=== PATIENT | male | born 1960 | race African-American/Black ===

== ENCOUNTER 2021-01-04 19:01 | Inpatient (IN) ==
[2021-01-04] MEDS ORDERED: NS 1,000 ML IV 1,000 ML ONE ×2 (19:04→21:14)
[2021-01-04] MEDS ORDERED: NS 1,000 ML IV 1,000 ML IV ONE ×2 (19:09→20:53)
--- NOTE | 2021-01-04 19:45 | DR.AMS ---
HPI Time Seen Time Seen by Provider: 01/04/21 19:44 PCP Primary Care Physician: HIGHTOWER Complaint Cheif Complaint Doctors Comments: 60 y/o male brought in via EMS after having sudden weakness, ground level fall and hypotension. Pt was at work. Developed bu rning with urination today, cloudy urine. Was treated for UTI over the past month. Has a h/o HTN, been taking his med qam. Denies recent girlfriends. Denies fever/chills. Has a slight cough, denies dyspnea. No chest pain, abdominal pain. No injury today with fall. Chief Complaint:: PT IN ED VIA STRETCHER PER [facility] WITH LOW BP, WEAKNESS, FELL FROM STANDING POSITION. STATES HIS KNEES GAVE OUT. COVID-19 Coronavirus risk:travel/contact w/high risk person: No Has patient experienced Coronavirus symptoms: Yes Coronavirus symptoms experienced: Fever Reviewed Nurses Notes Reviewed: Yes Source History Provided: Patient and EMS Mode of Arrival Mode of Arrival: EMS Timing Onset of Chief Complaint: 01/04/21 Came On: Suddenly PMH PMH Past Medical History: Yes Past Medical History: Arthritis and Hypertension Past Surgical History: No Surgical History: No History Family History History of Family Medical Conditions: Yes Family Medical History: Diabetes Mellitus and Hypertension Social History Does patient currently use any type of tobacco product: Yes Have you used tobacco products in the last 12 months: Yes Type of Tobacco Use: Black/mild Does any household member use tobacco: No Alcohol Use: None Do you use any recreational Drugs:: No Lives With: Family Lives Where: Home Travel Risk Coronavirus risk:travel/contact w/high risk person: No Has patient experienced Coronavirus symptoms: Yes Coronavirus symptoms experienced: Fever Infectious screening In the last 2 months have you had wt loss of >10#?: NO Have you had fever, night sweats or hemotysis?: No Have you traveled outside the country in the last 6 months?: No Isolation: Droplet ROS Review of Systems Constitutional: Weakness Eyes: No Symptoms Reported ENTM: No Symptoms Reported Respiratoy: Dry Cough; negative Short of Breath Cardiovascular: No Symptoms Reported Gastrointestinal/Abdominal: No Symptoms Reported Genitourinary: Dysuria and Frequency Neurological: Weakness Musculoskeletal: Joint Pain Integumentary: No Symptoms Reported Hematologic/Lymphatic: No Symptoms Reported Endocrine: No Symptoms Reported Psychiatric: No Symptoms Reported All Other Systems: Reviewed and Negative PE Vitals Vital Signs: Temp Pulse Resp BP Pulse Ox 01/05/21 00:45 82 98 01/05/21 00:30 85 125/78 97 01/05/21 00:15 92 H 98 01/05/21 00:00 89 97 01/04/21 23:45 91 H 98 01/04/21 23:30 89 115/74 99 01/04/21 23:15 90 99 01/04/21 23:00 91 H 126/70 98 01/04/21 22:45 93 H 98 01/04/21 22:30 94 H 120/72 97 01/04/21 22:15 94 H 98 01/04/21 22:00 95 H 118/75 99 01/04/21 21:45 92 H 21 01/04/21 21:30 94 H 17 111/74 01/04/21 21:15 96 H 32 H 01/04/21 21:00 94 H 20 98/65 01/04/21 20:45 97 H 21 01/04/21 20:30 93 H 18 96/63 01/04/21 20:15 90 28 H 01/04/21 20:00 93 H 26 H 102/62 01/04/21 19:45 91 H 31 H 99 01/04/21 19:30 93 H 27 H 83/50 99 01/04/21 19:17 92 H 30 H 98 01/04/21 19:02 100.2 F H 104 H 20 77/46 97 General Limitations: No Limitations General Appearance: Alert and In No Apparent Distress Head Head Exam: Normal Inspection, Atraumatic and Normocephalic Eyes Eye exam: Normal Appearance and PERRL ENT ENT Exam: Normal Exam and Mucous Membranes Moist Nose Exam: Normal Nose Exam Throat Exam: Normal Inspection Neck Neck Exam: Normal Inspection and Full ROM; negative Tenderness Respiratory Respiratory Exam: Normal Lung Sounds Bilat; negative Accessory Muscle Use and Respiratory Distress Respiratory Exam: Bilateral: Clear to Auscultation Cardiovascular Cardiovascular Exam: Regular Rate, Normal Rhythm and Normal Heart Sounds Abdominal Exam Abdominal Exam: Normal Inspection, Normal Bowel Sounds and Soft; negative Tenderness Extremities Extremities Exam: Normal Inspection and Full ROM; negative Tenderness and Edema Back Back Exam: Normal Inspection and Full ROM; negative Tenderness Neurological Neurological Exam: Alert, Oriented X3 and CN II-XII Intact; negative Motor Sensory Deficit Psychological Psychiatric Exam: Normal Affect Skin Skin Exam: Warm and Dry MDM Differential Diagnosis Metabolic: Dehydration and Hyponatremia Infectious: Sepsis and UTI COURSE Treatment Treatment: 60 y/o male brought in via EMS after sudden weakness. + low BP on their arrival. BP wiht systolic in the 90s on arrival. PE wihtout significant ab normalities. Given IV fluids, w/u initiated. EKG without ischemic changes, CXR acceptable. Labs show the pt to have a significant UTI, with TNTC WBCs/RBCs. Pt states has been having bladder issues over the past month. Serum WBC normal. CMP shows markedly abnormal renal numbers (BUN 67, Cr 4.5). Pt denies known kidney issures on previous outpt labs. CT of abd/pelvis - shows thickened bladder wall, kidneys normal, no signs of pyelonephritis. Pt given IV/PO antibiotics, additional IV fluids. Will repeat a BMP to see if kidneys improving. 0051 - BMP shows improving Cr (4.5 to 3.0). Recommend admission for further treatment. Discussed with his covering attending, Dr Cee. ROR Labs Reviewed Laboratory Results Reviewed?: Yes Result Diagrams: 01/04/21 20:07 01/05/21 00:10 Laboratory: WBC 7.7 X10^3/uL (3.6-10.0) 01/04/21 20:07 RBC 3.54 X10^6/uL (4.7-6.0) L 01/04/21 20:07 Hgb 11.4 g/dL (13.5-18.0) L 01/04/21 20:07 Hct 32.2 % (42.0-54.0) L 01/04/21 20:07 MCV 91.0 fL (80.0-100.0) 01/04/21 20:07 MCH 32.2 pg (27.0-34.0) 01/04/21 20:07 MCHC 35.3 g/dL (33.0-35.0) H 01/04/21 20:07 RDW 12.7 % (11.6-16.5) 01/04/21 20:07 Plt Count 167 X10^3/uL (150.0-450.0) 01/04/21 20:07 MPV 8.1 fL (7.4-11.0) 01/04/21 20:07 Neut % (Auto) 78.5 % (42.0-75.0) H 01/04/21 20:07 Lymph % (Auto) 10.4 % (21.0-51.0) L 01/04/21 20:07 [place] % (Auto) 10.7 % (0.0-13.0) 01/04/21 20:07 Eos % (Auto) 0.1 % (0.9-2.9) L 01/04/21 20:07 Baso % (Auto) 0.3 % (0.2-1.0) 01/04/21 20:07 Neut # (Auto) 6.1 x10^3/uL (2.2-4.8) H 01/04/21 20:07 Lymph # (Auto) 0.8 X10^3/uL (1.3-2.9) L 01/04/21 20:07 [place] # (Auto) 0.8 x10^3/uL (0.3-0.8) 01/04/21 20:07 Eos # (Auto) 0.0 x10^3/uL (0.0-0.2) 01/04/21 20:07 Baso # (Auto) 0.0 X10^3/uL (0.0-0.1) 01/04/21 20:07 Absolute Nucleated RBC 0.1 /100WBC 01/04/21 20:07 Sodium 134 mmol/L (136-145) L 01/05/21 00:10 Corrected Sodium TNP 01/05/21 00:10 Potassium 5.4 mmol/L (3.5-5.1) H 01/05/21 00:10 Chloride 104 mmol/L (98-107) 01/05/21 00:10 Carbon Dioxide 18.9 mmol/L (21-32) L 01/05/21 00:10 BUN 61 mg/dL (7-18) H 01/05/21 00:10 Creatinine 3.08 mg/dL (0.70-1.30) H 01/05/21 00:10 Est GFR (MDRD) Af Amer 27 (>60) L 01/05/21 00:10 Est GFR (MDRD) Non-Af 22 (>60) L 01/05/21 00:10 Glucose 103 mg/dL (65-99) H 01/05/21 00:10 Lactic Acid 0.7 mmol/L (0.4-2.0) 01/04/21 20:07 Calcium 8.2 mg/dL (8.5-10.1) L 01/05/21 00:10 Corrected Calcium 9.4 mg/dL (8.5-10.1) 01/04/21 20:07 Total Bilirubin 0.30 mg/dL (0.2-1.0) 01/04/21 20:07 AST 18 Units/L (15-37) 01/04/21 20:07 ALT 18 Units/L (12-78) 01/04/21 20:07 Alkaline Phosphatase 55 Units/L (46-116) 01/04/21 20:07 Creatine Kinase 321 Units/L (39-308) H 01/04/21 20:07 CK-MB (CK-2) 3.5 ng/mL (0-4.0) 01/04/21 20:07 CK/CKMB % Calc 1.1 % (<4) 01/04/21 20:07 Troponin I < 0.02 ng/mL (0-1.5) 01/04/21 20:07 Total Protein 8.3 g/dL (6.4-8.2) H 01/04/21 20:07 Albumin 2.8 g/dL (3.4-5.0) L 01/04/21 20:07 Globulin 5.5 g/dL (2.5-4.5) H 01/04/21 20:07 Albumin/Globulin Ratio 0.5 Ratio (1.1-2.1) L 01/04/21 20:07 Specimen Type Clean catch urine 01/04/21 19:55 Urine Color Yellow (YELLOW) 01/04/21 19:55 Urine Appearance Cloudy (CLEAR) 01/04/21 19:55 Urine pH 5.0 (5.0 - 8.0) 01/04/21 19:55 Ur Specific [place] 1.015 (1.000-1.030) 01/04/21 19:55 Urine Protein 4+ (NEGATIVE) 01/04/21 19:55 Urine Glucose (UA) Negative (NEGATIVE) 01/04/21 19: Urine Ketones 1+ (NEGATIVE) 01/04/21 19:55 Urine Occult Blood 5+ (NEGATIVE) 01/04/21 19:55 Urine Nitrite Negative (NEGATIVE) 01/04/21 19:55 Urine Bilirubin Negative (NEGATIVE) 01/04/21 19:55 Urine Urobilinogen 1+ (NORMAL) 01/04/21 19:55 Ur Leukocyte Esterase 3+ (NEGATIVE) 01/04/21 19:55 Urine RBC Tntc /HPF (0-3) A 01/04/21 19:55 Urine WBC Tntc /HPF (0-5) A 01/04/21 19:55 Ur Squamous Epith Cells Rare /HPF (NEGATIVE) 01/04/21 19:55 Urine Bacteria Trace /HPF (NEGATIVE) 01/04/21 19:55 Ur Culture Indicated? Yes/culture set up 01/04/21 19:55 Urine Opiates Screen Negative (NEG=<300) 01/04/21 19:55 Urine Methadone Screen Negative (NEG=<300) 01/04/21 19:55 Ur Barbiturates Screen Negative (NEG=<200) 01/04/21 19:55 Ur Phencyclidine Scrn Negative (NEG=<25) 01/04/21 19:55 Ur Amphetamines Screen Negative (NEG=<1000) 01/04/21 19:55 U Benzodiazepines Scrn Negative (NEG=<200) 01/04/21 19:55 Urine Cocaine Screen Negative (NEG=<300) 01/04/21 19:55 U Marijuana (THC) Screen Negative (NEG=<50) 01/04/21 19:55 Ur C. trach DNA (PCR) Cancelled 01/04/21 Unknown U N.gonorrhoeae DNA PCR Cancelled 01/04/21 Unknown SARS CoV-2 RNA Rapid MARCIN Negative (NEGATIVE) 01/04/21 19:14 Other Results Comments: + UTI, + renal injury. XRAY XRAY Interpreted by: Radiologist X-ray Results: + thickened bladder wall, + left inguinal hernia. EKG Rate: 93 [place]: Normal Rhythm: NSR Block: None Hypertrophy: None ST: Normal Opioid Opioid Risk Tool Age (Jay box if 16-45): No History of Preadolescent Sexual Abuse: No Total: 0 Total Score Risk Category: Low Risk Copyright: Almas FERRARO predicting aberrant behaviors Diagnosis Discharge Problem: Acute nontraumatic kidney injury UTI (urinary tract infection) Qualifiers: Urinary tract infection type: site unspecified Hematuria presence: with hematuria Qualified Code(s): N39.0 - Urinary tract infection, site not specified ADDITIONAL NOTES Additional Notes Additional Notes: Critical care time 35 minutes (includes initial evaluation, initial orders, Managing IV fluids, interpretation of labs, imaging studies, IV /PO antibiotics, discussion with pt/family, discussion with admitting attending).
[2021-01-04 20:26] LABS: BASOPHILS % (AUTO) 0.3 % (0.2-1.0); EOSINOPHILS % (AUTO) 0.1 % (0.9-2.9); HEMATOCRIT 32.2 % (42.0-54.0); HEMOGLOBIN 11.4 g/dL (13.5-18.0); LYMPHOCYTES # (AUTO) 0.8 X10^3/uL (1.3-2.9); LYMPHOCYTES % (AUTO) 10.4 % (21.0-51.0); MEAN CORPUSCULAR HEMOGLOBIN 32.2 pg (27.0-34.0); MEAN CORPUSCULAR HGB CONC 35.3 g/dL (33.0-35.0); MEAN PLATELET VOLUME 8.1 fL (7.4-11.0); MONOCYTES # (AUTO) 0.8 x10^3/uL (0.3-0.8); MONOCYTES % (AUTO) 10.7 % (0.0-13.0); NEUTROPHILS # (AUTO) 6.1 x10^3/uL (2.2-4.8); NEUTROPHILS % (AUTO) 78.5 % (42.0-75.0); PLATELET COUNT 167 X10^3/uL (150.0-450.0); RED BLOOD COUNT 3.54 X10^6/uL (4.7-6.0); RED CELL DISTRIBUTION WIDTH 12.7 % (11.6-16.5); WHITE BLOOD COUNT 7.7 X10^3/uL (3.6-10.0)
[2021-01-04 20:28] LABS: BILIRUBIN,URINE NEGATIVE (NEGATIVE); BLOOD/HEMOGLOBIN,URINE 5+ (NEGATIVE); GLUCOSE, URINE NEGATIVE (NEGATIVE); KETONES,URINE 1+ (NEGATIVE); LEUKOCYTE ESTERASE ,URINE 3+ (NEGATIVE); NITRITES,URINE NEGATIVE (NEGATIVE); PROTEIN,URINE 4+ (NEGATIVE); UROBILINOGEN,URINE 1+ (NORMAL)
[2021-01-04 20:41] LABS: LACTIC ACID 0.7 mmol/L (0.4-2.0)
[2021-01-04 20:43] LABS: APPEARANCE,URINE CLOUDY (CLEAR); COLOR,URINE YELLOW (YELLOW)
[2021-01-04 20:44] LABS: BACTERIA,URINE TRACE /HPF (NEGATIVE); RBC,URINE TNTC /HPF (0-3); SQUAMOUS EPITHELIAL CELL,UR RARE /HPF (NEGATIVE)
[2021-01-04 20:48] LABS: ALANINE AMINOTRANSFERASE 18 Units/L (12-78); ALBUMIN 2.8 g/dL (3.4-5.0); ALKALINE PHOSPHATASE 55 Units/L (46-116); ASPARTATE AMINO TRANSFERASE 18 Units/L (15-37); BLOOD UREA NITROGEN 67 mg/dL (7-18); CALCIUM 8.4 mg/dL (8.5-10.1); CARBON DIOXIDE 21.5 mmol/L (21-32); CHLORIDE 102 mmol/L (98-107); CKMB % 1.1 % (<4); COR CA(FOR HYPOALB) 9.4 mg/dL (8.5-10.1); CREATINE KINASE 321 Units/L (39-308); CREATINE KINASE MB 3.5 ng/mL (0-4.0); CREATININE 4.51 mg/dL (0.70-1.30); SODIUM 133 mmol/L (136-145); TOTAL PROTEIN 8.3 g/dL (6.4-8.2); TROPONIN I < 0.02 ng/mL (0-1.5); eGFR NON BLACK RACES 14 (>60)
[2021-01-04] MEDS ORDERED: VIBRAMYCIN PO ONE ×2 (20:53→21:13)
[2021-01-04] MEDS ORDERED: ROCEPHIN VIAL 1 GRAM 1 G in NS 100 ML IV + SPIKE MINIBAG* 100 ML IV ONE (20:54)
[2021-01-04] MEDS ORDERED: ROCEPHIN VIAL 1 GRAM ONE (21:14)
[2021-01-04] MEDS ORDERED: NS 100 ML IV + SPIKE MINIBAG* 100 ML IV ONE (21:14)
--- NOTE | 2021-01-04 22:22 | CT ---
HISTORYLOW BP, WEAKNESS, FELL FROM STANDING POSITION. STATES HIS KNEES GAVE OUT. UTISTUDYABDOMEN/PELVIS W/O CONCOMPARISONNoneTECHNIQUEMultiple CT axial images of the abdomen and pelvis were obtained without IV contrast. Coronal and sagittal images were reconstructed. Dose reduction techniques included Automated Exposure Control (AEC) and adjustment of mA and kV.FINDINGSThe lung bases are clear. Heart size is normal.Liver, gallbladder, spleen, adrenal glands, and pancreas are unremarkable.The kidneys have normal size and shape. No abnormal calcification is present. There is no hydronephrosis or significant perirenal edema. The ureters are not dilated.Urinary bladder has a thickened wall. The most common etiologies are chronic bladder outlet obstruction and neurogenic bladder. If the patient is symptomatic, this could be infectious cystitis. After cancer treatment, this could be radiation cystitis.Large left inguinal hernia contains small bowel. No edema or fluid at the site. No bowel obstruction or pneumoperitoneum. Degenerative changes are present in the spine. No compression fracture. No femoral neck fracture. 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 No acute finding2. Left inguinal hernia containing small bowel3. Nonspecific urinary bladder wall thickeningElectronically signed by: Juan Stewart (Jan 04, 2021 22:19:34)
--- NOTE | 2021-01-04 22:35 | RAD ---
HISTORYHYPOTENSIVE, WEAKNESS, FEVERSTUDYCHEST, 1 VIEWCOMPARISONNoneFINDINGSThe lungs are clear. No pneumothorax or significant effusion.Heart size is normal.Bones are unremarkable.EKG leads are noted.IMPRESSION1. No significant abnormalityElectronically signed by: Juan Stewart (Jan 04, 2021 22:34:15)
[2021-01-05 00:37] LABS: BLOOD UREA NITROGEN 61 mg/dL (7-18); CALCIUM 8.2 mg/dL (8.5-10.1); CARBON DIOXIDE 18.9 mmol/L (21-32); CHLORIDE 104 mmol/L (98-107); CREATININE 3.08 mg/dL (0.70-1.30); SODIUM 134 mmol/L (136-145); eGFR NON BLACK RACES 22 (>60)
[2021-01-05] MEDS: ROCEPHIN VIAL 1 GRAM 1 G in NS 100 ML IV + SPIKE MINIBAG* 100 ML IV SCH ×2 (01:40→08:53)
[2021-01-05] MEDS ORDERED: NS 1,000 ML IV 1,000 ML ONE ×3 (01:43→18:17)
[2021-01-05] MEDS: NS 1,000 ML IV 1,000 ML IV SCH ×3 (01:46→18:17)
[2021-01-05 02:31] VITALS: BMI 27.1
[2021-01-05 05:28] LABS: BASOPHILS % (AUTO) 0.3 % (0.2-1.0); EOSINOPHILS # (AUTO) 0.1 x10^3/uL (0.0-0.2); EOSINOPHILS % (AUTO) 0.9 % (0.9-2.9); HEMATOCRIT 32.8 % (42.0-54.0); HEMOGLOBIN 11.6 g/dL (13.5-18.0); LYMPHOCYTES # (AUTO) 1.1 X10^3/uL (1.3-2.9); LYMPHOCYTES % (AUTO) 18.3 % (21.0-51.0); MEAN CORPUSCULAR HEMOGLOBIN 31.8 pg (27.0-34.0); MEAN CORPUSCULAR HGB CONC 35.3 g/dL (33.0-35.0); MEAN CORPUSCULAR VOLUME 90.1 fL (80.0-100.0); MEAN PLATELET VOLUME 7.9 fL (7.4-11.0); MONOCYTES # (AUTO) 0.9 x10^3/uL (0.3-0.8); MONOCYTES % (AUTO) 14.9 % (0.0-13.0); NEUTROPHILS # (AUTO) 3.9 x10^3/uL (2.2-4.8); NEUTROPHILS % (AUTO) 65.6 % (42.0-75.0); PLATELET COUNT 167 X10^3/uL (150.0-450.0); RED BLOOD COUNT 3.65 X10^6/uL (4.7-6.0); RED CELL DISTRIBUTION WIDTH 12.6 % (11.6-16.5); WHITE BLOOD COUNT 5.9 X10^3/uL (3.6-10.0)
[2021-01-05 05:43] LABS: ALANINE AMINOTRANSFERASE 19 Units/L (12-78); ALBUMIN 2.4 g/dL (3.4-5.0); ALKALINE PHOSPHATASE 52 Units/L (46-116); ASPARTATE AMINO TRANSFERASE 19 Units/L (15-37); BLOOD UREA NITROGEN 55 mg/dL (7-18); CALCIUM 8.3 mg/dL (8.5-10.1); CARBON DIOXIDE 20.7 mmol/L (21-32); CHLORIDE 105 mmol/L (98-107); COR CA(FOR HYPOALB) 9.6 mg/dL (8.5-10.1); CREATININE 2.28 mg/dL (0.70-1.30); SODIUM 135 mmol/L (136-145); TOTAL PROTEIN 7.8 g/dL (6.4-8.2); eGFR NON BLACK RACES 31 (>60)
[2021-01-05] MEDS ORDERED: VIBRAMYCIN PO ONE (08:40)
[2021-01-05] MEDS ORDERED: NS 100 ML IV + SPIKE MINIBAG* 100 ML IV ONE (08:40)
[2021-01-05] MEDS ORDERED: ROCEPHIN VIAL 1 GRAM ONE (08:40)
[2021-01-05] MEDS: VIBRAMYCIN PO SCH ×2 (08:53→21:10)
[2021-01-05 11:39] LABS: BILIRUBIN,URINE NEGATIVE (NEGATIVE); BLOOD/HEMOGLOBIN,URINE 5+ (NEGATIVE); GLUCOSE, URINE NEGATIVE (NEGATIVE); KETONES,URINE NEGATIVE (NEGATIVE); LEUKOCYTE ESTERASE ,URINE 3+ (NEGATIVE); NITRITES,URINE NEGATIVE (NEGATIVE); PROTEIN,URINE 3+ (NEGATIVE); UROBILINOGEN,URINE NORMAL (NORMAL)
[2021-01-05 11:41] LABS: COLOR,URINE PINK (YELLOW)
[2021-01-05 11:42] LABS: APPEARANCE,URINE TURBID (CLEAR)
[2021-01-05 11:55] LABS: BACTERIA,URINE TRACE /HPF (NEGATIVE); MUCUS,URINE FEW /HPF (NEGATIVE); SQUAMOUS EPITHELIAL CELL,UR RARE /HPF (NEGATIVE)
[2021-01-05 12:40] LABS: BLOOD UREA NITROGEN 42 mg/dL (7-18); CALCIUM 8.3 mg/dL (8.5-10.1); CARBON DIOXIDE 18.8 mmol/L (21-32); CHLORIDE 107 mmol/L (98-107); SODIUM 136 mmol/L (136-145); eGFR NON BLACK RACES 55 (>60)
[2021-01-06] MEDS: NS 1,000 ML IV 1,000 ML IV SCH ×5 (00:41→21:00)
[2021-01-06 06:15] LABS: ALANINE AMINOTRANSFERASE 20 Units/L (12-78); ALBUMIN 2.3 g/dL (3.4-5.0); ALKALINE PHOSPHATASE 51 Units/L (46-116); ASPARTATE AMINO TRANSFERASE 21 Units/L (15-37); BASOPHILS % (AUTO) 0.6 % (0.2-1.0); BLOOD UREA NITROGEN 19 mg/dL (7-18); CALCIUM 8.3 mg/dL (8.5-10.1); CARBON DIOXIDE 20.9 mmol/L (21-32); CHLORIDE 106 mmol/L (98-107); COR CA(FOR HYPOALB) 9.7 mg/dL (8.5-10.1); CREATININE 0.77 mg/dL (0.70-1.30); EOSINOPHILS # (AUTO) 0.1 x10^3/uL (0.0-0.2); EOSINOPHILS % (AUTO) 5.1 % (0.9-2.9); HEMATOCRIT 37.1 % (42.0-54.0); HEMOGLOBIN 12.9 g/dL (13.5-18.0); LYMPHOCYTES # (AUTO) 0.7 X10^3/uL (1.3-2.9); LYMPHOCYTES % (AUTO) 24.1 % (21.0-51.0); MEAN CORPUSCULAR HEMOGLOBIN 31.9 pg (27.0-34.0); MEAN CORPUSCULAR HGB CONC 34.7 g/dL (33.0-35.0); MEAN PLATELET VOLUME 8.6 fL (7.4-11.0); MONOCYTES # (AUTO) 0.4 x10^3/uL (0.3-0.8); MONOCYTES % (AUTO) 15.9 % (0.0-13.0); NEUTROPHILS # (AUTO) 1.5 x10^3/uL (2.2-4.8); NEUTROPHILS % (AUTO) 54.3 % (42.0-75.0); PLATELET COUNT 140 X10^3/uL (150.0-450.0); RED BLOOD COUNT 4.03 X10^6/uL (4.7-6.0); RED CELL DISTRIBUTION WIDTH 12.8 % (11.6-16.5); SODIUM 137 mmol/L (136-145); TOTAL PROTEIN 7.8 g/dL (6.4-8.2); WHITE BLOOD COUNT 2.8 X10^3/uL (3.6-10.0); eGFR NON BLACK RACES > 60 (>60)
[2021-01-06] MEDS: ROCEPHIN VIAL 1 GRAM 1 G in NS 100 ML IV + SPIKE MINIBAG* 100 ML IV SCH (08:00)
[2021-01-06] MEDS: VIBRAMYCIN PO SCH ×2 (08:00→21:03)
[2021-01-06] MEDS: ZESTRIL TAB 20 MG PO SCH (15:00)
[2021-01-06] MEDS: AMPICILLIN VIAL 2 GRAM 2 G in NS 100 ML IV + SPIKE MINIBAG* 100 ML IV SCH ×3 (15:10→21:00)
[2021-01-06] MEDS ORDERED: ZESTRIL TAB 20 MG ONE (15:13)
[2021-01-07] MEDS: NS 1,000 ML IV 1,000 ML IV SCH ×2 (02:29→05:26)
[2021-01-07] MEDS: AMPICILLIN VIAL 2 GRAM 2 G in NS 100 ML IV + SPIKE MINIBAG* 100 ML IV SCH (02:29)
[2021-01-07 06:22] LABS: BASOPHILS % (AUTO) 0.4 % (0.2-1.0); EOSINOPHILS # (AUTO) 0.2 x10^3/uL (0.0-0.2); EOSINOPHILS % (AUTO) 6.3 % (0.9-2.9); HEMATOCRIT 36.6 % (42.0-54.0); LYMPHOCYTES # (AUTO) 0.8 X10^3/uL (1.3-2.9); LYMPHOCYTES % (AUTO) 28.4 % (21.0-51.0); MEAN CORPUSCULAR HGB CONC 35.5 g/dL (33.0-35.0); MEAN CORPUSCULAR VOLUME 90.3 fL (80.0-100.0); MEAN PLATELET VOLUME 7.1 fL (7.4-11.0); MONOCYTES # (AUTO) 0.4 x10^3/uL (0.3-0.8); MONOCYTES % (AUTO) 14.2 % (0.0-13.0); NEUTROPHILS # (AUTO) 1.4 x10^3/uL (2.2-4.8); NEUTROPHILS % (AUTO) 50.7 % (42.0-75.0); PLATELET COUNT 167 X10^3/uL (150.0-450.0); RED BLOOD COUNT 4.05 X10^6/uL (4.7-6.0); RED CELL DISTRIBUTION WIDTH 12.3 % (11.6-16.5); WHITE BLOOD COUNT 2.8 X10^3/uL (3.6-10.0)
[2021-01-07 06:45] LABS: ALANINE AMINOTRANSFERASE 15 Units/L (12-78); ALBUMIN 2.1 g/dL (3.4-5.0); ALKALINE PHOSPHATASE 44 Units/L (46-116); ASPARTATE AMINO TRANSFERASE 21 Units/L (15-37); BLOOD UREA NITROGEN 10 mg/dL (7-18); CALCIUM 8.3 mg/dL (8.5-10.1); CARBON DIOXIDE 21.5 mmol/L (21-32); CHLORIDE 107 mmol/L (98-107); COR CA(FOR HYPOALB) 9.8 mg/dL (8.5-10.1); CREATININE 0.57 mg/dL (0.70-1.30); SODIUM 137 mmol/L (136-145); TOTAL PROTEIN 7.2 g/dL (6.4-8.2); eGFR NON BLACK RACES > 60 (>60)
[2021-01-07] MEDS ORDERED: ZESTRIL TAB 20 MG ONE (08:07)
[2021-01-07] MEDS: ZESTRIL TAB 20 MG PO SCH (09:01)
[2021-01-07] MEDS: VIBRAMYCIN PO SCH (09:01)
[2021-01-07 09:34] VITALS: BP 150/102
== END 2021-01-07 12:00 | disposition home or self-care (01) | DRG 690 ==
LOC: ER 19:01 → U 01-05 00:57 → MED/SURG 01-05 18:25
PROVIDERS: ADMIT Internal Medicine; ATTEND Obstetrics & Gynecology Obstetrics
DX: W18.39XA Other fall on same level, initial encounter; E86.0 Dehydration; N40.1 Benign prostatic hyperplasia with lower urinary tract symptoms; I10 Essential (primary) hypertension; R53.1 Weakness; N39.0 Urinary tract infection, site not specified; N17.8 Other acute kidney failure; Z20.822 Contact with and (suspected) exposure to COVID-19; B95.61 Methicillin susceptible Staphylococcus aureus infection as the cause of diseases classified elsewhere

== ENCOUNTER 2021-01-21 11:47 | Inpatient (IN) ==
--- NOTE | 2021-01-21 11:52 | DR.DIZZY ---
HPI Time seen Time Seen by Provider: 01/21/21 11:49 HPI Comment HPI Comment: PATIENT RECENTLY HOSPITALIZED ON JAN 04, 2021 FOR ACUTE RENAL FAILURE, SECONDARY TO BPH, DEHYDRATION AND URINARY TRACT INFECTION, PLACED ON FLOMAX OF BPH, COMPLAINS OF DIZZINESS AFTER TAKING FLOMAX AND LISINOPRIL. PATIENT COMPLAINS OF FEELING TOO WEAK TO STAND AND AMBULATE WITH WALKER ASSISTANCE. DENIES NAUSEA, VOMITING, DIARRHEA, URINARY SYMPTOMS, HEADACHE, BLURRED VISION, SLURRED SPEECH. STATES URINARY SYMPTOMS OF FRAQUENCY , URGENCY, AND STRAINING TO VOID HAS RESOLVED. Complaint Chief Complaint Doctor Comments: DIZZINESS Nurses Notes Reviewed Nurses Notes Review: Yes Source History Provided: Patient, Family Member and EMS Mode of Arrival Mode of Arrival: EMS Timing Onset of Chief Complaint: 01/21/21 Came on: Suddenly Onset of Symptoms Start Date: 01/21/21 Duration Duration: Since Onset How lon Duration: Hours Location of Weakness Weakness Location: Generalized Context Onset: With light exertion Does pt take pot. toxic medication?: No Stroke Symptoms: None Modifying factors Worsens: Nothing Associated signs and symptoms Associated Signs and Symptoms: Other (DIZZINESS AND GENERALIZED WEAKNESS) PMH PMH Past Medical History: Arthritis and Hypertension Past Surgical History: No Surgical History: No History Family History Family Medical History: Diabetes Mellitus and Hypertension Social History Do you use any recreational Drugs:: No ROS Review of Systems Constitutional: See HPI and Weakness Eyes: No Symptoms Reported ENTM: No Symptoms Reported Respiratoy: No Symptoms Reported Cardiovascular: No Symptoms Reported Gastrointestinal/Abdominal: No Symptoms Reported Genitourinary: No Symptoms Reported Neurological: Dizziness Musculoskeletal: No Symptoms Reported Integumentary: No Symptoms Reported Hematologic/Lymphatic: No Symptoms Reported Endocrine: No Symptoms Reported Psychiatric: No Symptoms Reported All Other Systems: Reviewed and Negative PE Vital Signs Vitals: Temperature 98.1 F Pulse Rate 69 Respiratory Rate 17 Blood Pressure [Left Arm] 150/102 Blood Pressure 106/66 O2 Sat by Pulse Oximetry 99 General Limitations: Physical Limitation General Appearance: Alert and In No Apparent Distress Head Head Exam: Normal Inspection and Atraumatic Eyes Eye exam: Normal Appearance, PERRL and EOMI Pupils: Regular, Round: Bilateral ENT ENT Exam: Normal Exam and Normal Oropharynx Neck Neck Exam: Normal Inspection and Full ROM Chest Chest Inspection: Normal Inspection and Symmetric Chest Wall Rise Respiratory Respiratory Exam: Normal Lung Sounds Bilat Respiratory Exam: Bilateral: Clear to Auscultation Cardiovascular Cardiovascular Exam: Regular Rate and Normal Rhythm Abdominal Exam Abdominal Exam: Normal Inspection, Normal Bowel Sounds, Soft and Tenderness (NO TENDERNESS) Extremeties Extremities Exam: Normal Inspection and Full ROM Back Back Exam: Normal Inspection and Full ROM Neurologic Neurological Exam: Alert Cranial Nerve Exam: EOM Function (II, III, IV, ): Normal Cerebellar Function: Other (NOT TESTED) Skin Skin Exam: Warm and Dry MDM Differential Diagnosis Differential Diagnosis: CVA, Dehydration and Myocardial infarction Differential Diagnosis Comment: SEPSIS COURSE Treatment Treatment: IV NORMAL SALINE 1 LITER BOLUS 1 HOUR AFTER 2 SETS OF BLOOD CULTURES, ADMINISTERED ROCEPHIN 1GM IVPB Consultation Call Returned: 13:40 Consultation Comments: DISCUSSED WITH DR HIGHTOWER FOR ICU ADMIT INPATIENT ROR Labs Reviewed Laboratory Results Reviewed?: Yes Result Diagrams: 01/21/21 11:45 01/21/21 12:21 Laboratory: WBC 2.5 X10^3/uL (3.6-10.0) L 01/21/21 11:45 RBC 3.37 X10^6/uL (4.7-6.0) L 01/21/21 11:45 Hgb 10.7 g/dL (13.5-18.0) L 01/21/21 11:45 Hct 30.6 % (42.0-54.0) L 01/21/21 11:45 MCV 90.6 fL (80.0-100.0) 01/21/21 11:45 MCH 31.6 pg (27.0-34.0) 01/21/21 11:45 MCHC 34.9 g/dL (33.0-35.0) 01/21/21 11:45 RDW 12.7 % (11.6-16.5) 01/21/21 11:45 Plt Count 110 X10^3/uL (150.0-450.0) L 01/21/21 11:45 MPV 9.1 fL (7.4-11.0) 01/21/21 11:45 Neut % (Auto) 35.6 % (42.0-75.0) L 01/21/21 11:45 Lymph % (Auto) 40.2 % (21.0-51.0) 01/21/21 11:45 [place] % (Auto) 17.6 % (0.0-13.0) H 01/21/21 11:45 Eos % (Auto) 5.9 % (0.9-2.9) H 01/21/21 11:45 Baso % (Auto) 0.7 % (0.2-1.0) 01/21/21 11:45 Neut # (Auto) 0.9 x10^3/uL (2.2-4.8) L 01/21/21 11:45 Lymph # (Auto) 1.0 X10^3/uL (1.3-2.9) L 01/21/21 11:45 [place] # (Auto) 0.4 x10^3/uL (0.3-0.8) 01/21/21 11:45 Eos # (Auto) 0.1 x10^3/uL (0.0-0.2) 01/21/21 11:45 Baso # (Auto) 0.0 X10^3/uL (0.0-0.1) 01/21/21 11:45 Absolute Nucleated RBC 0.6 /100WBC 01/21/21 11:45 PT 15.3 SECONDS (11.8-14.3) 01/21/21 12:13 INR Target Range - 01/21/21 12:13 INR 1.27 (0.8-1.3) 01/21/21 12:13 Sample Site Rra 01/21/21 12:34 ABG pH 7.400 (7.35-7.45) 01/21/21 12:34 ABG pCO2 39.0 mmHg (35.0-45.0) 01/21/21 12:34 ABG pO2 106.0 mmHg (80.0-100.0) H 01/21/21 12:34 ABG HCO3 24.2 mmol/L (22-26) 01/21/21 12:34 ABG O2 Saturation 98.0 % (90-100) 01/21/21 12:34 ABG Base Excess -0.5 mmol/L (-2.0-2.0) 01/21/21 12:34 Brodie Test Pos 01/21/21 12:34 A-a Gradient -5.0 mmHg 01/21/21 12:34 FiO2 21.0 01/21/21 12:34 Blood Gas Comments Pt lonnie well eb 01/21/21 12:34 Sodium 138 mmol/L (136-145) 01/21/21 12:21 Corrected Sodium TNP 01/21/21 12:21 Potassium 4.1 mmol/L (3.5-5.1) 01/21/21 12:21 Chloride 105 mmol/L (98-107) 01/21/21 12:21 Carbon Dioxide 26.4 mmol/L (21-32) 01/21/21 12:21 BUN 82 mg/dL (7-18) H 01/21/21 12:21 Creatinine 4.43 mg/dL (0.70-1.30) H 01/21/21 12:21 Est GFR (MDRD) Af Amer 18 (>60) L 01/21/21 12:21 Est GFR (MDRD) Non-Af 15 (>60) L 01/21/21 12:21 Glucose 102 mg/dL (65-99) H 01/21/21 12:21 Lactic Acid 0.8 mmol/L (0.4-2.0) 01/21/21 12:21 Calcium 8.6 mg/dL (8.5-10.1) 01/21/21 12:21 Corrected Calcium 9.5 mg/dL (8.5-10.1) 01/21/21 12:21 Magnesium 2.6 mg/dL (1.7-2.9) 01/21/21 12:13 Total Bilirubin 0.40 mg/dL (0.2-1.0) 01/21/21 12:21 AST 15 Units/L (15-37) 01/21/21 12:21 ALT 12 Units/L (12-78) 01/21/21 12:21 Alkaline Phosphatase 36 Units/L (46-116) L 01/21/21 12:21 Troponin I < 0.02 ng/mL (0-1.5) 01/21/21 12:21 Total Protein 7.7 g/dL (6.4-8.2) 01/21/21 12:21 Albumin 2.9 g/dL (3.4-5.0) L 01/21/21 12:21 Globulin 4.8 g/dL (2.5-4.5) H 01/21/21 12:21 Albumin/Globulin Ratio 0.6 Ratio (1.1-2.1) L 01/21/21 12:21 Specimen Type Catherized urine 01/21/21 14:10 Urine Color Yellow (YELLOW) 01/21/21 14:10 Urine Appearance Hazy (CLEAR) 01/21/21 14:10 Urine pH 5.0 (5.0 - 8.0) 01/21/21 14:10 Ur Specific [place] 1.020 (1.000-1.030) 01/21/21 14:10 Urine Protein 3+ (NEGATIVE) 01/21/21 14:10 Urine Glucose (UA) Negative (NEGATIVE) 01/21/21 14:10 Urine Ketones Negative (NEGATIVE) 01/21/21 14:10 Urine Occult Blood 5+ (NEGATIVE) 01/21/21 14:10 Urine Nitrite Negative (NEGATIVE) 01/21/21 14:10 Urine Bilirubin Negative (NEGATIVE) 01/21/21 14:10 Urine Urobilinogen Normal (NORMAL) 01/21/21 14:10 Ur Leukocyte Esterase 3+ (NEGATIVE) 01/21/21 14:10 Urine RBC Tntc /HPF (0-3) A 01/21/21 14:10 Urine WBC Tntc /HPF (0-5) A 01/21/21 14:10 Ur Squamous Epith Cells Rare /HPF (NEGATIVE) 01/21/21 14:10 Urine Bacteria Trace /HPF (NEGATIVE) 01/21/21 14:10 Ur Culture Indicated? Yes/culture set up 01/21/21 14:10 SARS-CoV-2 (PCR) Negative (NEGATIVE) 01/21/21 12:29 XRAY XRAY Interpreted by: Radiologist (HEAD CT SCAN C/W NO ACUTE PROCESS, ABDOMINAL PELVIC CT WITHOUT CONTRAST C/W MILD BOWEL UPPER ABDOMINAL THICKENING CONSISTENT WITH ENTERITIS 3RD AND 4TH SEGMENT ) EKG Rate: 66 [place]: Normal (POOR R-WAVE PROGRESSION, NO CHANGE FROM EKG 01/04/2021) Opioid Opioid Risk Tool Age (Jay box if 16-45): No History of Preadolescent Sexual Abuse: No Total: 0 Total Score Risk Category: Low Risk Copyright: Almas FERRARO predicting aberrant behaviors Diagnosis Discharge Problem: Acute renal failure, Sepsis secondary to UTI
[2021-01-21] MEDS ORDERED: NS 1,000 ML IV 1,000 ML IV ONE (11:53)
[2021-01-21 12:04] VITALS: BMI 27.9
[2021-01-21] MEDS ORDERED: ROCEPHIN 1 GRAM IV PREMIX 1 G/50 ML IV.SOLN. IV ONE ×2 (12:34→12:48)
[2021-01-21 12:37] LABS: ABG BASE EXCESS -0.5 mmol/L (-2.0-2.0); ABG HCO3 24.2 mmol/L (22-26)
[2021-01-21 12:38] LABS: ABG ALLEN TEST POS
[2021-01-21 12:39] LABS: BASOPHILS % (AUTO) 0.7 % (0.2-1.0); EOSINOPHILS # (AUTO) 0.1 x10^3/uL (0.0-0.2); EOSINOPHILS % (AUTO) 5.9 % (0.9-2.9); HEMATOCRIT 30.6 % (42.0-54.0); HEMOGLOBIN 10.7 g/dL (13.5-18.0); LYMPHOCYTES % (AUTO) 40.2 % (21.0-51.0); MEAN CORPUSCULAR HEMOGLOBIN 31.6 pg (27.0-34.0); MEAN CORPUSCULAR HGB CONC 34.9 g/dL (33.0-35.0); MEAN CORPUSCULAR VOLUME 90.6 fL (80.0-100.0); MEAN PLATELET VOLUME 9.1 fL (7.4-11.0); MONOCYTES # (AUTO) 0.4 x10^3/uL (0.3-0.8); MONOCYTES % (AUTO) 17.6 % (0.0-13.0); NEUTROPHILS # (AUTO) 0.9 x10^3/uL (2.2-4.8); NEUTROPHILS % (AUTO) 35.6 % (42.0-75.0); PLATELET COUNT 110 X10^3/uL (150.0-450.0); RED BLOOD COUNT 3.37 X10^6/uL (4.7-6.0); RED CELL DISTRIBUTION WIDTH 12.7 % (11.6-16.5); WHITE BLOOD COUNT 2.5 X10^3/uL (3.6-10.0)
[2021-01-21 12:48] LABS: ALANINE AMINOTRANSFERASE 12 Units/L (12-78); ALBUMIN 2.9 g/dL (3.4-5.0); ALKALINE PHOSPHATASE 36 Units/L (46-116); ASPARTATE AMINO TRANSFERASE 15 Units/L (15-37); BLOOD UREA NITROGEN 82 mg/dL (7-18); CALCIUM 8.6 mg/dL (8.5-10.1); CARBON DIOXIDE 26.4 mmol/L (21-32); CHLORIDE 105 mmol/L (98-107); COR CA(FOR HYPOALB) 9.5 mg/dL (8.5-10.1); CREATININE 4.43 mg/dL (0.70-1.30); SODIUM 138 mmol/L (136-145); TOTAL PROTEIN 7.7 g/dL (6.4-8.2); TROPONIN I < 0.02 ng/mL (0-1.5); eGFR NON BLACK RACES 15 (>60)
[2021-01-21] MEDS ORDERED: NS 1,000 ML IV 1,000 ML ONE (12:48)
[2021-01-21 12:52] LABS: LACTIC ACID 0.8 mmol/L (0.4-2.0)
[2021-01-21] MEDS ORDERED: NS 1,000 ML IV 1,000 ML IV SCH (13:00)
[2021-01-21] MEDS ORDERED: NS 100 ML IV 100 ML IV SCH (13:00)
--- NOTE | 2021-01-21 13:13 | RAD ---
HISTORYDYSPNEA, DIZZINESS HTNSTUDYCHEST, 1 [id number]/01/2021FINDINGSThe trachea is midline. The cardiac silhouette is unremarkable. The lungs are clear without focal infiltrate or effusion. The bony thorax is unremarkable.IMPRESSIONNo acute cardiopulmonary findings .Electronically signed by: Citlalli Paredes (Jan 21, 2021 13:11:25)
--- NOTE | 2021-01-21 13:19 | CT ---
HISTORYMARKED DIZZINESSSTUDYBRAIN W/O CONCOMPARISONNone.TECHNIQUEMultiple axial images of the head were performed from the skullbase to the vertex using standard departmental protocol. Sagittal and coronal reformatted images were performed. Dose reduction techniques including Automated Exposure Control (AEC) and adjustment of mA and kV were utilized.FINDINGSThe lateral ventricles and basilar cisterns are patent.No parenchymal mass or hematoma. Grady-white differentiation appears acutely preserved. Mild low attenuation change in the subcortical and deep supratentorial white matter.No extra-axial collection.The globes are intact.No air fluid levels in the paranasal sinuses. No paranasal sinus wall thickening or sclerosis. Mastoid air cells are clear.The calvarium is intact.IMPRESSIONNo acute intracranial abnormality. Mild chronic small vessel disease.Electronically signed by: Aly Alanis (Jan 21, 2021 13:17:29)
--- NOTE | 2021-01-21 13:30 | CT ---
HISTORYABD PAINSTUDYABDOMEN/PELVIS W/O CONCOMPARISONCT abdomen and pelvis 01/04/2021TECHNIQUEMultiple CT axial images of the abdomen and pelvis were obtained without IV contrast. Coronal and sagittal images were reconstructed. Dose reduction techniques included Automated Exposure Control (AEC) and adjustment of mA and kV.FINDINGSThere is a segment of small bowel in the upper abdomen which has wall thickening and edema around it suggesting enteritis. This involves the 3rd and 4th segments of the duodenum and extends into the proximal jejunum. Finding was not present on the prior study.There is no bowel obstruction or free air.The lung bases are clear. Heart size is normal. Liver, gallbladder, spleen, adrenal glands, and pancreas are unremarkable.The kidneys have normal size and shape. No abnormal calcification is present. There is no hydronephrosis or significant perirenal edema. The ureters are not dilated. Bladder wall thickening is unchanged from prior study.Large left inguinal hernia is unchanged and contains small bowel. No inflammation at the site.Small area of avascular necrosis is noted in the left femoral head. Femoral head contour is still preserved.IMPRESSION1. Findings suggesting a nonspecific proximal small bowel enteritisElectronically signed by: Juan Stewart (Jan 21, 2021 13:29:42)
[2021-01-21 14:27] LABS: BILIRUBIN,URINE NEGATIVE (NEGATIVE); BLOOD/HEMOGLOBIN,URINE 5+ (NEGATIVE); GLUCOSE, URINE NEGATIVE (NEGATIVE); KETONES,URINE NEGATIVE (NEGATIVE); LEUKOCYTE ESTERASE ,URINE 3+ (NEGATIVE); NITRITES,URINE NEGATIVE (NEGATIVE); PROTEIN,URINE 3+ (NEGATIVE); UROBILINOGEN,URINE NORMAL (NORMAL)
[2021-01-21 14:36] LABS: APPEARANCE,URINE HAZY (CLEAR); COLOR,URINE YELLOW (YELLOW)
[2021-01-21 14:37] LABS: BACTERIA,URINE TRACE /HPF (NEGATIVE); RBC,URINE TNTC /HPF (0-3); SQUAMOUS EPITHELIAL CELL,UR RARE /HPF (NEGATIVE)
[2021-01-21] MEDS ORDERED: TYLENOL 325 MG TAB PO PRN (15:18)
[2021-01-21] MEDS: NS 1,000 ML IV 1,000 ML IV SCH (17:14)
[2021-01-21] MEDS: ZOSYN VIAL 2.25 GRAMS 2.25 G in NS 100 ML IV + SPIKE MINIBAG* 100 ML IV SCH (21:07)
[2021-01-21] MEDS: FLOMAX PO SCH (21:07)
[2021-01-22] MEDS: NS 1,000 ML IV 1,000 ML IV SCH ×4 (02:14→19:25)
[2021-01-22 05:03] LABS: BASOPHILS % (AUTO) 1.7 % (0.2-1.0); EOSINOPHILS # (AUTO) 0.2 x10^3/uL (0.0-0.2); EOSINOPHILS % (AUTO) 9.8 % (0.9-2.9); HEMATOCRIT 31.7 % (42.0-54.0); HEMOGLOBIN 11.1 g/dL (13.5-18.0); LYMPHOCYTES # (AUTO) 0.8 X10^3/uL (1.3-2.9); LYMPHOCYTES % (AUTO) 40.9 % (21.0-51.0); MEAN CORPUSCULAR HEMOGLOBIN 31.5 pg (27.0-34.0); MEAN CORPUSCULAR HGB CONC 34.9 g/dL (33.0-35.0); MEAN CORPUSCULAR VOLUME 90.1 fL (80.0-100.0); MEAN PLATELET VOLUME 8.1 fL (7.4-11.0); MONOCYTES # (AUTO) 0.3 x10^3/uL (0.3-0.8); MONOCYTES % (AUTO) 14.2 % (0.0-13.0); NEUTROPHILS # (AUTO) 0.6 x10^3/uL (2.2-4.8); NEUTROPHILS % (AUTO) 33.4 % (42.0-75.0); PLATELET COUNT 98 X10^3/uL (150.0-450.0); RED BLOOD COUNT 3.52 X10^6/uL (4.7-6.0); RED CELL DISTRIBUTION WIDTH 12.6 % (11.6-16.5)
[2021-01-22 05:14] LABS: ALANINE AMINOTRANSFERASE 11 Units/L (12-78); ALBUMIN 2.6 g/dL (3.4-5.0); ALKALINE PHOSPHATASE 35 Units/L (46-116); ASPARTATE AMINO TRANSFERASE 13 Units/L (15-37); BLOOD UREA NITROGEN 58 mg/dL (7-18); CALCIUM 8.3 mg/dL (8.5-10.1); CARBON DIOXIDE 24.8 mmol/L (21-32); CHLORIDE 106 mmol/L (98-107); COR CA(FOR HYPOALB) 9.4 mg/dL (8.5-10.1); CREATININE 1.64 mg/dL (0.70-1.30); SODIUM 138 mmol/L (136-145); TOTAL PROTEIN 7.3 g/dL (6.4-8.2); eGFR NON BLACK RACES 46 (>60)
[2021-01-22 05:27] LABS: WHITE BLOOD COUNT 1.9 X10^3/uL (3.6-10.0)
[2021-01-22] MEDS: ZOSYN VIAL 2.25 GRAMS 2.25 G in NS 100 ML IV + SPIKE MINIBAG* 100 ML IV SCH ×3 (05:43→21:05)
[2021-01-22 05:54] LABS: BAND NEUTROPHILS % 4 % (0-10); METAMYELOCYTES % 4; MYELOCYTES % 4; PLATELET MORPHOLOGY COMMENT NORMAL (NORMAL)
[2021-01-22] MEDS ORDERED: NS 1,000 ML IV 1,000 ML IV ONE (10:17)
[2021-01-22] MEDS ORDERED: NEUPOGEN INJ 480 MCG SC ONE (18:00)
[2021-01-22] MEDS: FLOMAX PO SCH (21:05)
[2021-01-23] MEDS: NS 1,000 ML IV 1,000 ML IV SCH ×10 (00:15→21:50)
[2021-01-23] MEDS: ZOSYN VIAL 2.25 GRAMS 2.25 G in NS 100 ML IV + SPIKE MINIBAG* 100 ML IV SCH ×3 (05:47→21:37)
[2021-01-23 05:53] LABS: BASOPHILS % (AUTO) 0.5 % (0.2-1.0); EOSINOPHILS # (AUTO) 0.2 x10^3/uL (0.0-0.2); EOSINOPHILS % (AUTO) 3.6 % (0.9-2.9); HEMATOCRIT 30.1 % (42.0-54.0); HEMOGLOBIN 10.6 g/dL (13.5-18.0); LYMPHOCYTES # (AUTO) 0.8 X10^3/uL (1.3-2.9); LYMPHOCYTES % (AUTO) 16.4 % (21.0-51.0); MEAN CORPUSCULAR HEMOGLOBIN 31.3 pg (27.0-34.0); MEAN CORPUSCULAR HGB CONC 35.2 g/dL (33.0-35.0); MEAN CORPUSCULAR VOLUME 88.9 fL (80.0-100.0); MEAN PLATELET VOLUME 8.7 fL (7.4-11.0); MONOCYTES # (AUTO) 0.4 x10^3/uL (0.3-0.8); MONOCYTES % (AUTO) 9.2 % (0.0-13.0); NEUTROPHILS # (AUTO) 3.4 x10^3/uL (2.2-4.8); NEUTROPHILS % (AUTO) 70.3 % (42.0-75.0); PLATELET COUNT 90 X10^3/uL (150.0-450.0); RED BLOOD COUNT 3.38 X10^6/uL (4.7-6.0); RED CELL DISTRIBUTION WIDTH 12.8 % (11.6-16.5); WHITE BLOOD COUNT 4.8 X10^3/uL (3.6-10.0)
[2021-01-23 06:07] LABS: ALANINE AMINOTRANSFERASE 12 Units/L (12-78); ALBUMIN 2.4 g/dL (3.4-5.0); ALKALINE PHOSPHATASE 34 Units/L (46-116); ASPARTATE AMINO TRANSFERASE 12 Units/L (15-37); BLOOD UREA NITROGEN 26 mg/dL (7-18); CARBON DIOXIDE 24.6 mmol/L (21-32); CHLORIDE 106 mmol/L (98-107); COR CA(FOR HYPOALB) 9.3 mg/dL (8.5-10.1); CREATININE 0.86 mg/dL (0.70-1.30); SODIUM 137 mmol/L (136-145); eGFR NON BLACK RACES > 60 (>60)
--- NOTE | 2021-01-23 09:57 | PCM.PROG ---
Progress Note - Progress Note for Day of Date of Exam: 01/23/21 - Subjective Subjective: IS A 60 YEAR OLD B/M PATIENT OF . HE WAS ADMITTED ON 01/21/21 FOR TREATMENT OF URINARY SEPSIS AND ACUTE RENAL FAILURE. HE HAS A HX OF BEINGN PROSTATID HYPERTROPHY FOR WHICH HE SEES . HE ALSO HAS HX OF ARTHRITIS AND HTN. TODAY, HE IS ALERT AND ORIENTED, LYING IN BED ON MORNING ROUNDS. HE CONTINUES WITH REPORTS OF WEAKNESS. ON EXAMINATION, HEART IS REGULAR IN RATE AND RHYTHM. BILATERAL LUNGS CLEAR TO AUSCULTATION. ABDOMEN IS ROUND, SOFT, AND NON-TENDER WITH NORMAL BOWEL SOUNDS NOTED IN ALL QUADRANTS. HIS VITALS THIS MORNING ARE: 97.8-69-16-98%-122/85. LABS WERE OBTAINED. ABNORMAL LAB VALUES INCLUDE THE FOLLOWING: RBC 3.38, HGB 10.6, HCT 30.1, PLT COUNT 90, BUN 26, CALCIUM 8.0, AST 12, ALK PHOS 34, ALBUMIN 2.4, GLOBULIN 4.6. URINE AND BLOOD CULTURES ARE PENDING. WE WILL CONTINUE WITH IV HYDRATION, ANTIBIOTICS, AND CURRENT PLAN OF CARE TODAY. OTHERWISE, WE WILL FOLLOW UP WITH AM LABS AND CONTINUE TO MONITOR. - Past Medical Family Social History Past Med/Fam/Surg Hx: No changes since H&P Allergies: Allergies Sulfa (Sulfonamide Antibiotics) [SULFA] Allergy (Verified 01/21/21 11:50) - Vital Signs and I&O's Vital Signs: Temperature 97.8 F Pulse Rate [Apical] 65 Pulse Rate 92 Respiratory Rate 21 Blood Pressure [Left Arm] 108/75 Blood Pressure 126/86 O2 Sat by Pulse Oximetry 96 Intake and Output: Intake & Output 01/20/21 01/21/21 01/22/21 01/23/21 11:59 11:59 11:59 11:59 Intake Total 2617 / 2617 8548 / 8548 Output Total 2500 / 2500 4001 / 4001 Balance 117 / 117 4547 / 4547 - Physical Exam Oriented: Normal Eyes: Normal Ear: Normal Nose: Normal Throat: Normal Respiratory: Normal Cardiovascular: Normal : Normal Auscultation: Bowel Sounds: Normal Palpation: Normal Tenderness: Normal Skin: Normal Musculoskeletal: Normal Psychiatric: Normal Mood Description: Calm Affect: Normal Speech Pattern: Clear, Appropriate - Laboratory and Diagnostics Result Diagrams: 01/23/21 04:56 11/20/21 04:56 Labs: 01/21/21 14:10 Urine,Catheterized Urine Culture - Preliminary 01/21/21 12:13 Blood Blood Culture - Preliminary Laboratory WBC 4.8 X10^3/uL (3.6-10.0) 01/23/21 04:56 RBC 3.38 X10^6/uL (4.7-6.0) L 01/23/21 04:56 Hgb 10.6 g/dL (13.5-18.0) L 01/23/21 04:56 Hct 30.1 % (42.0-54.0) L 01/23/21 04:56 MCV 88.9 fL (80.0-100.0) 01/23/21 04:56 MCH 31.3 pg (27.0-34.0) 01/23/21 04:56 MCHC 35.2 g/dL (33.0-35.0) H 01/23/21 04:56 RDW 12.8 % (11.6-16.5) 01/23/21 04:56 Plt Count 90 X10^3/uL (150.0-450.0) L 01/23/21 04:56 Plt Count Comment Decreased (ADEQUATE) 01/22/21 04:40 MPV 8.7 fL (7.4-11.0) 01/23/21 04:56 Neut % (Auto) 70.3 % (42.0-75.0) 01/23/21 04:56 Lymph % (Auto) 16.4 % (21.0-51.0) L 01/23/21 04:56 [place] % (Auto) 9.2 % (0.0-13.0) 01/23/21 04:56 Eos % (Auto) 3.6 % (0.9-2.9) H 01/23/21 04:56 Baso % (Auto) 0.5 % (0.2-1.0) 01/23/21 04:56 Neut # (Auto) 3.4 x10^3/uL (2.2-4.8) 01/23/21 04:56 Lymph # (Auto) 0.8 X10^3/uL (1.3-2.9) L 01/23/21 04:56 [place] # (Auto) 0.4 x10^3/uL (0.3-0.8) 01/23/21 04:56 Eos # (Auto) 0.2 x10^3/uL (0.0-0.2) 01/23/21 04:56 Baso # (Auto) 0.0 X10^3/uL (0.0-0.1) 01/23/21 04:56 Absolute Nucleated RBC 0.0 /100WBC 01/23/21 04:56 Total Counted 25 01/22/21 04:40 Neutrophils % (Manual) 40 % (39-76) 01/22/21 04:40 Band Neutrophils % 4 % (0-10) 01/22/21 04:40 Lymphocytes % (Manual) 32 % (13-43) 01/22/21 04:40 Monocytes % (Manual) 8 % (4-9) 01/22/21 04:40 Eosinophils % (Manual) 8 % (0-6) H 01/22/21 04:40 Metamyelocytes % 4 01/22/21 04:40 Myelocytes % 4 01/22/21 04:40 Plt Morphology Comment Normal (NORMAL) 01/22/21 04:40 RBC Morphology Normal (NORMAL) 01/22/21 04:40 PT 15.3 SECONDS (11.8-14.3) 01/21/21 12:13 INR Target Range - 01/21/21 12:13 INR 1.27 (0.8-1.3) 01/21/21 12:13 Sample Site Rra 01/21/21 12:34 ABG pH 7.400 (7.35-7.45) 01/21/21 12:34 ABG pCO2 39.0 mmHg (35.0-45.0) 01/21/21 12:34 ABG pO2 106.0 mmHg (80.0-100.0) H 01/21/21 12:34 ABG HCO3 24.2 mmol/L (22-26) 01/21/21 12:34 ABG O2 Saturation 98.0 % (90-100) 01/21/21 12:34 ABG Base Excess -0.5 mmol/L (-2.0-2.0) 01/21/21 12:34 Brodie Test Pos 01/21/21 12:34 A-a Gradient -5.0 mmHg 01/21/21 12:34 FiO2 21.0 01/21/21 12:34 Blood Gas Comments Pt lonnie well eb 01/21/21 12:34 Sodium 137 mmol/L (136-145) 01/23/21 04:56 Corrected Sodium TNP 01/23/21 04:56 Potassium 4.0 mmol/L (3.5-5.1) 01/23/21 04:56 Chloride 106 mmol/L (98-107) 01/23/21 04:56 Carbon Dioxide 24.6 mmol/L (21-32) 01/23/21 04:56 BUN 26 mg/dL (7-18) H 01/23/21 04:56 Creatinine 0.86 mg/dL (0.70-1.30) 01/23/21 04:56 Est GFR (MDRD) Af Amer > 60 (>60) 01/23/21 04:56 Est GFR (MDRD) Non-Af > 60 (>60) 01/23/21 04:56 Glucose 85 mg/dL (65-99) 01/23/21 04:56 Lactic Acid 0.8 mmol/L (0.4-2.0) 01/21/21 12:21 Calcium 8.0 mg/dL (8.5-10.1) L 01/23/21 04:56 Corrected Calcium 9.3 mg/dL (8.5-10.1) 01/23/21 04:56 Magnesium 2.6 mg/dL (1.7-2.9) 01/21/21 12:13 Total Bilirubin 0.50 mg/dL (0.2-1.0) 01/23/21 04:56 AST 12 Units/L (15-37) L 01/23/21 04:56 ALT 12 Units/L (12-78) 01/23/21 04:56 Alkaline Phosphatase 34 Units/L (46-116) L 01/23/21 04:56 Troponin I < 0.02 ng/mL (0-1.5) 01/21/21 12:21 Total Protein 7.0 g/dL (6.4-8.2) 01/23/21 04:56 Albumin 2.4 g/dL (3.4-5.0) L 01/23/21 04:56 Globulin 4.6 g/dL (2.5-4.5) H 01/23/21 04:56 Albumin/Globulin Ratio 0.5 Ratio (1.1-2.1) L 01/23/21 04:56 Specimen Type Catherized urine 01/21/21 14:10 Urine Color Yellow (YELLOW) 01/21/21 14:10 Urine Appearance Hazy (CLEAR) 01/21/21 14:10 Urine pH 5.0 (5.0 - 8.0) 01/21/21 14:10 Ur Specific [place] 1.020 (1.000-1.030) 01/21/21 14:10 Urine Protein 3+ (NEGATIVE) 01/21/21 14:10 Urine Glucose (UA) Negative (NEGATIVE) 01/21/21 14:10 Urine Ketones Negative (NEGATIVE) 01/21/21 14:10 Urine Occult Blood 5+ (NEGATIVE) 01/21/21 14:10 Urine Nitrite Negative (NEGATIVE) 01/21/21 14:10 Urine Bilirubin Negative (NEGATIVE) 01/21/21 14:10 Urine Urobilinogen Normal (NORMAL) 01/21/21 14:10 Ur Leukocyte Esterase 3+ (NEGATIVE) 01/21/21 14:10 Urine RBC Tntc /HPF (0-3) A 01/21/21 14:10 Urine WBC Tntc /HPF (0-5) A 01/21/21 14:10 Ur Squamous Epith Cells Rare /HPF (NEGATIVE) 01/21/21 14:10 Urine Bacteria Trace /HPF (NEGATIVE) 01/21/21 14:10 Ur Culture Indicated? Yes/culture set up 01/21/21 14:10 SARS-CoV-2 (PCR) Negative (NEGATIVE) 01/21/21 12:29 - Plan (1) Sepsis secondary to UTI Status: Acute (2) Acute renal failure Status: Acute (3) Benign prostatic hyperplasia Status: Acute Qualifiers: Lower urinary tract symptom presence: symptoms present Lower urinary tract symptom detail: unspecified Qualified Code(s): N40.1 - Benign prostatic hyperplasia with lower urinary tract symptoms
[2021-01-23] MEDS: FLOMAX PO SCH (21:37)
[2021-01-24 05:52] LABS: BASOPHILS # (AUTO) 0.1 X10^3/uL (0.0-0.1); BASOPHILS % (AUTO) 0.8 % (0.2-1.0); EOSINOPHILS # (AUTO) 0.2 x10^3/uL (0.0-0.2); HEMATOCRIT 31.4 % (42.0-54.0); HEMOGLOBIN 10.9 g/dL (13.5-18.0); MEAN CORPUSCULAR HEMOGLOBIN 31.1 pg (27.0-34.0); MEAN CORPUSCULAR HGB CONC 34.7 g/dL (33.0-35.0); MEAN CORPUSCULAR VOLUME 89.6 fL (80.0-100.0); MONOCYTES # (AUTO) 0.7 x10^3/uL (0.3-0.8); MONOCYTES % (AUTO) 5.3 % (0.0-13.0); NEUTROPHILS # (AUTO) 10.2 x10^3/uL (2.2-4.8); NEUTROPHILS % (AUTO) 83.9 % (42.0-75.0); PLATELET COUNT 89 X10^3/uL (150.0-450.0); RED CELL DISTRIBUTION WIDTH 12.6 % (11.6-16.5); WHITE BLOOD COUNT 12.2 X10^3/uL (3.6-10.0)
[2021-01-24] MEDS: ZOSYN VIAL 2.25 GRAMS 2.25 G in NS 100 ML IV + SPIKE MINIBAG* 100 ML IV SCH (05:59)
[2021-01-24 06:03] LABS: ALANINE AMINOTRANSFERASE 10 Units/L (12-78); ALBUMIN 2.2 g/dL (3.4-5.0); ALKALINE PHOSPHATASE 36 Units/L (46-116); ASPARTATE AMINO TRANSFERASE 12 Units/L (15-37); BLOOD UREA NITROGEN 11 mg/dL (7-18); CALCIUM 8.1 mg/dL (8.5-10.1); CARBON DIOXIDE 24.1 mmol/L (21-32); CHLORIDE 106 mmol/L (98-107); COR CA(FOR HYPOALB) 9.5 mg/dL (8.5-10.1); CREATININE 0.75 mg/dL (0.70-1.30); SODIUM 139 mmol/L (136-145); TOTAL PROTEIN 6.8 g/dL (6.4-8.2); eGFR NON BLACK RACES > 60 (>60)
[2021-01-24] MEDS: NS 1,000 ML IV 1,000 ML IV SCH (09:32)
[2021-01-24 13:03] VITALS: BP 132/92
== END 2021-01-24 13:29 | disposition home or self-care (01) | DRG 872 ==
LOC: ER 11:47 → ICU 14:34
PROVIDERS: ADMIT Obstetrics & Gynecology Obstetrics; ATTEND Obstetrics & Gynecology Obstetrics
DX: R42 Dizziness and giddiness; N39.0 Urinary tract infection, site not specified; R94.31 Abnormal electrocardiogram [ECG] [EKG]; R10.84 Generalized abdominal pain; I10 Essential (primary) hypertension; N17.8 Other acute kidney failure; A41.9 Sepsis, unspecified organism; R53.1 Weakness; Z20.822 Contact with and (suspected) exposure to COVID-19; N40.1 Benign prostatic hyperplasia with lower urinary tract symptoms

== ENCOUNTER 2021-04-22 18:05 | Observation (INO) ==
[2021-04-22 18:11] VITALS: BMI 27.5
--- NOTE | 2021-04-22 18:14 | DR.GENAD ---
HPI Time Seen Time Seen by Provider: 04/22/21 18:12 PCP Primary Care Physician: KATJA HPI Comment HPI Comment: PATIENT IS 60YR OLD MALE IN ER WITH INCREASING WEAKNESS AND FALLING WHEN HE TRY TO AMBULATE. DENIES HEADACHE OR NECK PAIN. HAVING LEG PAIN, NO NAUSEA OR VOMITING. HE IS NOT ABLE TO GET UP AND WALK AROUND CURRENTLY. NO HIP PAIN. Complaint/Symptoms Chief Complaint Doctors Comments: INCREASING WEAKNESS. FALL WHEN HE TRY TO WALK. Chief Complaint:: PT. C/O INCREASED WEAKNESS TO LOWER LEGS. ONSET OF LAST NIGHT. PT. STATES HE HAS FALLEN DUE TO WEAKNESS. PT. LIVES ALONE. EMS INFORMS STAFF THAT PT'S HOME IS IN POOR LIVING CONDITIONS AND THAT PT'S CHART WAS SATURATED W ITH URINE. COVID-19 Coronavirus risk:travel/contact w/high risk person: No Has patient experienced Coronavirus symptoms: No Nurses notes reviewed Nurses Notes Review: Yes Source History Provided: Patient and EMS Mode of Arrival Mode of Arrival: EMS Timing Onset of Chief Complaint: 04/21/21 Came on: Suddenly Duration Duration: Constant Duration: Days Severity Severity: Moderate Modifying Factors Worsens:: EXERTION Improves:: REST Other History Other History: HTN. PMH PMH Past Medical History: Yes Past Medical History: Arthritis and Hypertension Past Surgical History: No Surgical History: No History Family History History of Family Medical Conditions: Yes Family Medical History: Hypertension Social History Does patient currently use any type of tobacco product: No Have you used tobacco products in the last 12 months: No Type of Tobacco Use: None Does any household member use tobacco: No Alcohol Use: None Do you use any recreational Drugs:: No Lives With: Alone Lives Where: Home Travel Risk Coronavirus risk:travel/contact w/high risk person: No Has patient experienced Coronavirus symptoms: No Infectious screening In the last 2 months have you had wt loss of >10#?: NO Have you had fever, night sweats or hemotysis?: No Have you traveled outside the country in the last 6 months?: No Isolation: Standard ROS Review of Systems Constitutional: See HPI, Weakness and Fatigue; negative Fever Eyes: No Symptoms Reported and See HPI; negative Blurred Vision and Diplopia ENTM: See HPI and Nose Congestion; negative Nose Discharge Respiratoy: See HPI, Moist Cough and Short of Breath (ON EXERTION.) Cardiovascular: No Symptoms Reported and See HPI; negative Chest Pain Gastrointestinal/Abdominal: No Symptoms Reported and See HPI; negative Abdominal Pain, Diarrhea, Nausea and Vomiting Genitourinary: No Symptoms Reported and See HPI; negative Dysuria Neurological: See HPI and Weakness; negative Headache and Dizziness Musculoskeletal: No Symptoms Reported and See HPI; negative Back Pain and Muscle Pain Integumentary: See HPI and Dryness; negative Rash and Juandice Hematologic/Lymphatic: See HPI and Easy Bruising Endocrine: No Symptoms Reported and See HPI; negative Increased Thirst and Increased Urine Psychiatric: No Symptoms Reported and See HPI All Other Systems: Reviewed and Negative PE Vital Signs Vitals: Temperature 97.9 F Pulse Rate 78 Respiratory Rate 17 Blood Pressure [Left Arm] 108/75 Blood Pressure 147/94 O2 Sat by Pulse Oximetry 99 General Limitations: No Limitations General Appearance: Alert and In No Apparent Distress (AT REST.) Head Head Exam: Normal Inspection, Atraumatic and Normocephalic Eyes Eye exam: Normal Appearance and PERRL; negative Scleral Icterus and Conjunctival Injection ENT ENT Exam: Normal Exam, Normal Oropharynx, Normal External Ear Exam and TM's Normal Bilaterally External Ear Exam: Normal External Inspection; negative Mastoid Tenderness TM/Canal Exam: Bilateral: Normal Nose Exam: Normal Nose Exam Mouth Exam: Normal Inspection; negative Lip Swelling and Tongue Swelling Throat Exam: Normal Inspection; negative Tonsillar Erythema, Tonsillomegaly and Tonsillar Exudate Neck Neck Exam: Normal Inspection and Trachea Midline; negative Tenderness Chest Chest Inspection: Normal Inspection and Symmetric Chest Wall Rise; negative Tenderness Respiratory Respiratory Exam: Normal Lung Sounds Bilat; negative Accessory Muscle Use, Chest Wall Tenderness and Respiratory Distress Respiratory Exam: Bilateral: Rhonchi Cardiovascular Cardiovascular Exam: Regular Rate, Normal Rhythm and Normal Heart Sounds; negative Systolic Murmur and Diastolic Murmur Abdominal Exam Abdominal Exam: Normal Inspection, Normal Bowel Sounds and Soft; negative Tenderness Extremities Extremities Exam: Normal Inspection and Normal Capillary Refill Back Back Exam: Normal Inspection; negative (R) CVA Tenderness and (L) CVA Tenderness Neurologic Neurological Exam: Alert and Oriented X3; negative Motor Sensory Deficit Psychiatric Psychiatric Exam: Normal Affect and Normal Mood Skin Skin Exam: Dry MDM Additional Information Additional Information Obtained From: Old Records Differential Diagnosis Differential Diagnosis: PNEUMONIA, UTI, DEHYDRATION, ELECTROLYTE IMBALANCE, FALLS COURSE Treatment Treatment: ORDERS NOTED WHILE IN ER. LABS AND XRAY AND EKG REPORTS DISCUSSED WITH PATIENT. PATIENT WAS GIVEN NS 1L IV BOLUS, 40MEQ KCL EFFEV AND 1GM ROCEPHIN IVPB WHILE IN ER. HE WAS ADMITTED TO HOSPITAL FOR FURTHER MANAGEMENT. Consultation Consultation Comments: PATIENT DISCUSSED WITH GRACE CONNOR. HE WILL ADMIT PATIENT. Education/Counseling Education/Counseling: Patient Educated On: Diagnosis ROR Labs Reviewed Laboratory Results Reviewed?: Yes Result Diagrams: 04/26/21 05:41 04/26/21 05:41 Laboratory: 04/22/21 18:43 Blood Blood Culture - Final 04/22/21 18:35 Blood Blood Culture - Final 04/22/21 21:20 Urine,Clean Catch Urine Culture - Final Staphylococcus Aureus WBC 3.3 X10^3/uL (3.6-10.0) L 04/22/21 18:35 RBC 4.04 X10^6/uL (4.7-6.0) L 04/22/21 18:35 Hgb 12.5 g/dL (13.5-18.0) L 04/22/21 18:35 Hct 35.9 % (42.0-54.0) L 04/22/21 18:35 MCV 88.9 fL (80.0-100.0) 04/22/21 18:35 MCH 31.1 pg (27.0-34.0) 04/22/21 18:35 MCHC 35.0 g/dL (33.0-35.0) 04/22/21 18:35 RDW 13.7 % (11.6-16.5) 04/22/21 18:35 Plt Count 139 X10^3/uL (150.0-450.0) L 04/22/21 18:35 Plt Count Comment Decreased (ADEQUATE) 04/22/21 18:35 MPV 8.4 fL (7.4-11.0) 04/22/21 18:35 Neut % (Auto) 56.5 % (42.0-75.0) 04/22/21 18:35 Lymph % (Auto) 29.7 % (21.0-51.0) 04/22/21 18:35 [place] % (Auto) 9.7 % (0.0-13.0) 04/22/21 18:35 Eos % (Auto) 3.3 % (0.9-2.9) H 04/22/21 18:35 Baso % (Auto) 0.8 % (0.2-1.0) 04/22/21 18:35 Neut # (Auto) 1.9 x10^3/uL (2.2-4.8) L 04/22/21 18:35 Lymph # (Auto) 1.0 X10^3/uL (1.3-2.9) L 04/22/21 18:35 [place] # (Auto) 0.3 x10^3/uL (0.3-0.8) 04/22/21 18:35 Eos # (Auto) 0.1 x10^3/uL (0.0-0.2) 04/22/21 18:35 Baso # (Auto) 0.0 X10^3/uL (0.0-0.1) 04/22/21 18:35 Absolute Nucleated RBC 0.2 /100WBC 04/22/21 18:35 Plt Morphology Comment Normal (NORMAL) 04/22/21 18:35 RBC Morphology Normal (NORMAL) 04/22/21 18:35 Sodium 142 mmol/L (136-145) 04/22/21 18:35 Corrected Sodium TNP 04/22/21 18:35 Potassium 3.0 mmol/L (3.5-5.1) L* 04/22/21 18:35 Chloride 106 mmol/L (98-107) 04/22/21 18:35 Carbon Dioxide 24.2 mmol/L (21-32) 04/22/21 18:35 BUN 21 mg/dL (7-18) H 04/22/21 18:35 Creatinine 0.57 mg/dL (0.70-1.30) L 04/22/21 18:35 Est GFR (MDRD) Af Amer > 60 (>60) 04/22/21 18:35 Est GFR (MDRD) Non-Af > 60 (>60) 04/22/21 18:35 Glucose 85 mg/dL (65-99) 04/22/21 18:35 Lactic Acid 1.4 mmol/L (0.4-2.0) 04/22/21 18:35 Calcium 8.5 mg/dL (8.5-10.1) 04/22/21 18:35 Corrected Calcium 9.1 mg/dL (8.5-10.1) 04/22/21 18:35 Magnesium 1.8 mg/dL (1.7-2.9) 04/22/21 18:35 Total Bilirubin 0.40 mg/dL (0.2-1.0) 04/22/21 18:35 AST 35 Units/L (15-37) 04/22/21 18:35 ALT 21 Units/L (12-78) 04/22/21 18:35 Alkaline Phosphatase 46 Units/L (46-116) 04/22/21 18:35 Creatine Kinase 948 Units/L (39-308) H 04/22/21 18:35 CK-MB (CK-2) 8.7 ng/mL (0-4.0) H* 04/22/21 18:35 CK/CKMB % Calc 0.9 % (<4) 04/22/21 18:35 Troponin I High Sens 14.4 ng/L (4.0-60.0) 04/22/21 18:35 Total Protein 8.1 g/dL (6.4-8.2) 04/22/21 18:35 Albumin 3.3 g/dL (3.4-5.0) L 04/22/21 18:35 Globulin 4.8 g/dL (2.5-4.5) H 04/22/21 18:35 Albumin/Globulin Ratio 0.7 Ratio (1.1-2.1) L 04/22/21 18:35 Specimen Type Clean catch urine 04/22/21 21:20 Urine Color Yellow (YELLOW) 04/22/21 21:20 Urine Appearance Cloudy (CLEAR) 04/22/21 21:20 Urine pH 5.0 (5.0 - 8.0) 04/22/21 21:20 Ur Specific [place] 1.030 (1.000-1.030) 04/22/21 21:20 Urine Protein 3+ (NEGATIVE) 04/22/21 21:20 Urine Glucose (UA) Negative (NEGATIVE) 04/22/21 21:20 Urine Ketones 3+ (NEGATIVE) 04/22/21 21:20 Urine Occult Blood 5+ (NEGATIVE) 04/22/21 21:20 Urine Nitrite Positive (NEGATIVE) 04/22/21 21:20 Urine Bilirubin Negative (NEGATIVE) 04/22/21 21:20 Urine Urobilinogen Normal (NORMAL) 02/17/22 21:20 Ur Leukocyte Esterase 3+ (NEGATIVE) 04/22/21 21:20 Urine RBC 3-5 /HPF (0-3) A 04/22/21 21:20 Urine WBC Tntc /HPF (0-5) A 04/22/21 21:20 Ur Squamous Epith Cells Negative /HPF (NEGATIVE) 04/22/21 21:20 Urine Bacteria 1+ /HPF (NEGATIVE) 04/22/21 21:20 Ur Culture Indicated? Yes/culture set up 04/22/21 21:20 SARS CoV-2 RNA Rapid MARCIN Negative (NEGATIVE) 04/22/21 23:26 XRAY XRAY Interpreted by: Radiologist (REPORT NOTED.) and Self Opioid Opioid Risk Tool Age (Jay box if 16-45): No History of Preadolescent Sexual Abuse: No Total: 0 Total Score Risk Category: Low Risk Copyright: Almas FERRARO predicting aberrant behaviors Diagnosis Discharge Problem: Generalized weakness, Acute dehydration, Hypokalemia UTI (urinary tract infection) Qualifiers: Urinary tract infection type: site unspecified Hematuria presence: with hematuria Qualified Code(s): N39.0 - Urinary tract infection, site not specified Rhabdomyolysis Qualifiers: Rhabdomyolysis type: non-traumatic Qualified Code(s): M62.82 - Rhabdomyolysis Falls Qualifiers: Encounter type: initial encounter Qualified Code(s): W19.XXXA - Unspecified fall, initial encounter Lower extremity pain Qualifiers: Laterality: bilateral Qualified Code(s): M79.604 - Pain in right leg Instructions Instructions: Anemia How to Take Your Blood Pressure, [id number] Hypertension, Adult, Zlgs-[id number] Thrombocytopenia, [id number] Weakness Managing Your Hypertension Hypertension Forms: Excuse From Work or School Precautions for COVID19 [facility] Social Distancing
[2021-04-22 18:57] LABS: MEAN PLATELET VOLUME 8.4 fL (7.4-11.0); WHITE BLOOD COUNT 3.3 X10^3/uL (3.6-10.0)
[2021-04-22 19:02] LABS: BASOPHILS % (AUTO) 0.8 % (0.2-1.0); EOSINOPHILS # (AUTO) 0.1 x10^3/uL (0.0-0.2); EOSINOPHILS % (AUTO) 3.3 % (0.9-2.9); HEMATOCRIT 35.9 % (42.0-54.0); HEMOGLOBIN 12.5 g/dL (13.5-18.0); LYMPHOCYTES % (AUTO) 29.7 % (21.0-51.0); MEAN CORPUSCULAR HEMOGLOBIN 31.1 pg (27.0-34.0); MEAN CORPUSCULAR VOLUME 88.9 fL (80.0-100.0); MONOCYTES # (AUTO) 0.3 x10^3/uL (0.3-0.8); MONOCYTES % (AUTO) 9.7 % (0.0-13.0); NEUTROPHILS # (AUTO) 1.9 x10^3/uL (2.2-4.8); NEUTROPHILS % (AUTO) 56.5 % (42.0-75.0); RED BLOOD COUNT 4.04 X10^6/uL (4.7-6.0); RED CELL DISTRIBUTION WIDTH 13.7 % (11.6-16.5)
[2021-04-22 19:08] LABS: PLATELET MORPHOLOGY COMMENT NORMAL (NORMAL)
[2021-04-22 19:09] LABS: LACTIC ACID 1.4 mmol/L (0.4-2.0)
[2021-04-22 19:39] LABS: ALANINE AMINOTRANSFERASE 21 Units/L (12-78); ALBUMIN 3.3 g/dL (3.4-5.0); ALKALINE PHOSPHATASE 46 Units/L (46-116); ASPARTATE AMINO TRANSFERASE 35 Units/L (15-37); BLOOD UREA NITROGEN 21 mg/dL (7-18); CALCIUM 8.5 mg/dL (8.5-10.1); CARBON DIOXIDE 24.2 mmol/L (21-32); CHLORIDE 106 mmol/L (98-107); CKMB % 0.9 % (<4); COR CA(FOR HYPOALB) 9.1 mg/dL (8.5-10.1); CREATINE KINASE 948 Units/L (39-308); CREATININE 0.57 mg/dL (0.70-1.30); SODIUM 142 mmol/L (136-145); TOTAL PROTEIN 8.1 g/dL (6.4-8.2); eGFR NON BLACK RACES > 60 (>60)
--- NOTE | 2021-04-22 19:43 | CT ---
HISTORYC/O INCREASED WEAKNESS TO LOWER LEGS. ONSET OF LAST NIGHT. PT. STATES HE HAS FALLEN DUE TO WEAKNESS. PT. LIVES ALONE.STUDYBRAIN W/O CONCOMPARISONNovember 2020TECHNIQUEAxial non-contrast images of the head were obtained with coronal and sagittal reformats provided.Radiation dose: 1256.30 mGy-cm total DLPFINDINGSNo abnormal areas of acute attenuation in the brain parenchyma.[place]-white differentiation remains intact.No intracranial, extra-axial, fluid collection.No hemorrhage.Periventricular chronic microvascular disease.No mass, mass effect or midline shift.Age related brain parenchymal global atrophy.No ventriculomegaly.No acute fracture.Mucous retention cyst in the left maxillary sinus, otherwise, the sinuses are well aerated.Mastoid air cells are well aerated.Globes and intra-orbital contents are unremarkable.IMPRESSIONNo acute intracranial abnormality identified.Electronically signed by: Tyler Guzman (Apr 22, 2021 19:42:42)
[2021-04-22 19:46] LABS: CREATINE KINASE MB 8.7 ng/mL (0-4.0)
--- NOTE | 2021-04-22 19:47 | RAD ---
HISTORYC/O INCREASED WEAKNESS TO LOWER LEGS. ONSET OF LAST NIGHT. PT. STATES HE HAS FALLEN DUE TO WEAKNESS. PT. LIVES ALONE. Relevant Clinical InformationSTUDYCHEST, 1 VIEWCOMPARISONChest x-ray dated January 21, 2021.FINDINGSThe trachea is midline. The cardiac silhouette is unremarkable. Bibasilar scarring versus atelectasis. No obvious pneumothorax. The lungs are clear without focal infiltrate or effusion. The bony thorax is unremarkable.IMPRESSIONNo acute cardiopulmonary findings .Electronically signed by: REAL KIMBALL (Apr 22, 2021 19:47:05)
--- NOTE | 2021-04-22 19:48 | CT ---
HISTORYC/O INCREASED WEAKNESS TO LOWER LEGS. ONSET OF LAST NIGHT. PT. STATES HE HAS FALLEN DUE TO WEAKNESS. PT. LIVES ALONE.STUDYLUMBAR SPINE W/O CONCOMPARISONNone available.TECHNIQUENon-contrast axial CT images of the lumbar spine with sagittal and coronal reformats.Radiation dose: 1900.00 mGy-cm total DLP.FINDINGSVertebral body heights are maintained with normal alignment.Intervertebral disc spaces maintained.No significant central canal stenosis.Moderate neural foraminal narrowing bilaterally from L4-S1.Mild degenerative disc changes in the lower thoracic spine.No fracture identified.Urinary bladder wall thickening up to 1.4 cm with marginal edema.Soft tissues are unremarkable.Fat containing left inguinal hernia which also contains a cyst partial loop of small bowel; without incarceration or strangulation.IMPRESSION1. No acute abnormality identified.2. Multilevel degenerative disc and joint changes.3. Urinary bladder wall is thickened up to 1.4 cm with marginal edema. Correlate for symptoms of infectious or inflammatory cystitis.4. Fat containing left inguinal hernia which also contains a cyst partial loop of small bowel; without incarceration or strangulation.Electronically signed by: Tyler Guzman (Apr 22, 2021 19:47:41)
--- NOTE | 2021-04-22 19:52 | CT ---
HISTORYC/O INCREASED WEAKNESS TO LOWER LEGS. ONSET OF LAST NIGHT. PT. STATES HE HAS FALLEN DUE TO WEAKNESS. PT. LIVES ALONE.STUDYPELVIS W/O CONCOMPARISONNone available.TECHNIQUENon-contrast axial CT images of the pelvis. Images were reformatted into coronal and sagittal planes for further evaluation.Radiation dose: 856.80 mGy-cm total DLPFINDINGSLikely avascular necrosis versus cystic degenerative change in the superior aspect of the left femoral head with mild articular surface collapse.Mild bilateral hip joint degenerative changes.No fracture or dislocation.Left inguinal hernia containing multiple nonobstructed loops of small bowel without small bowel wall thickening or inflammatory changes.Mild urinary bladder wall thickening up to 1 cm with marginal inflammatory changes.IMPRESSION1. Likely avascular necrosis versus cystic degenerative change in the superior aspect of the left femoral head with mild articular surface collapse.2. Left inguinal hernia containing multiple nonobstructed loops of small bowel without small bowel wall thickening or inflammatory changes.3. Mild urinary bladder wall thickening up to 1 cm with marginal inflammatory changes. Findings could represent infectious or inflammatory cystitis.Electronically signed by: Tyler Guzman (Apr 22, 2021 19:52:07)
[2021-04-22] MEDS ORDERED: NS 1,000 ML IV 1,000 ML IV ONE (21:12)
[2021-04-22] MEDS ORDERED: KLOR-CON PO ONE (21:13)
[2021-04-22] MEDS ORDERED: KLOR-CON ONE (21:14)
[2021-04-22] MEDS ORDERED: NS 1,000 ML IV 1,000 ML ONE (21:15)
[2021-04-22 21:35] LABS: BILIRUBIN,URINE NEGATIVE (NEGATIVE); BLOOD/HEMOGLOBIN,URINE 5+ (NEGATIVE); GLUCOSE, URINE NEGATIVE (NEGATIVE); KETONES,URINE 3+ (NEGATIVE); LEUKOCYTE ESTERASE ,URINE 3+ (NEGATIVE); NITRITES,URINE POSITIVE (NEGATIVE); PROTEIN,URINE 3+ (NEGATIVE); UROBILINOGEN,URINE NORMAL (NORMAL)
[2021-04-22 21:56] LABS: APPEARANCE,URINE CLOUDY (CLEAR); COLOR,URINE YELLOW (YELLOW)
[2021-04-22 21:57] LABS: BACTERIA,URINE 1+ /HPF (NEGATIVE); SQUAMOUS EPITHELIAL CELL,UR NEGATIVE /HPF (NEGATIVE)
[2021-04-22] MEDS ORDERED: ROCEPHIN 1 GRAM IV PREMIX 1 G/50 ML IV.SOLN. IV ONE ×2 (23:04→23:12)
[2021-04-23] MEDS ORDERED: ROCEPHIN 1 GRAM IV PREMIX 1 G/50 ML IV.SOLN. IV SCH (00:07)
[2021-04-23] MEDS: NS 1,000 ML IV 1,000 ML IV SCH ×3 (01:35→14:45)
[2021-04-23 06:31] LABS: BASOPHILS % (AUTO) 0.8 % (0.2-1.0); EOSINOPHILS # (AUTO) 0.3 x10^3/uL (0.0-0.2); HEMATOCRIT 34.5 % (42.0-54.0); HEMOGLOBIN 12.2 g/dL (13.5-18.0); LYMPHOCYTES % (AUTO) 36.2 % (21.0-51.0); MEAN CORPUSCULAR HEMOGLOBIN 31.4 pg (27.0-34.0); MEAN CORPUSCULAR HGB CONC 35.3 g/dL (33.0-35.0); MEAN CORPUSCULAR VOLUME 88.8 fL (80.0-100.0); MEAN PLATELET VOLUME 8.5 fL (7.4-11.0); MONOCYTES # (AUTO) 0.3 x10^3/uL (0.3-0.8); MONOCYTES % (AUTO) 11.4 % (0.0-13.0); NEUTROPHILS # (AUTO) 1.1 x10^3/uL (2.2-4.8); NEUTROPHILS % (AUTO) 41.6 % (42.0-75.0); RED BLOOD COUNT 3.88 X10^6/uL (4.7-6.0); RED CELL DISTRIBUTION WIDTH 13.9 % (11.6-16.5); WHITE BLOOD COUNT 2.7 X10^3/uL (3.6-10.0)
[2021-04-23 06:45] LABS: ALANINE AMINOTRANSFERASE 21 Units/L (12-78); ALBUMIN 2.8 g/dL (3.4-5.0); ALKALINE PHOSPHATASE 41 Units/L (46-116); ASPARTATE AMINO TRANSFERASE 33 Units/L (15-37); BLOOD UREA NITROGEN 21 mg/dL (7-18); CALCIUM 8.1 mg/dL (8.5-10.1); CARBON DIOXIDE 26.9 mmol/L (21-32); CHLORIDE 109 mmol/L (98-107); CHOL/HDL RATIO 3.6 (0.0-5.0); CHOLESTEROL 121 mg/dL (0-200); COR CA(FOR HYPOALB) 9.1 mg/dL (8.5-10.1); CREATININE 0.51 mg/dL (0.70-1.30); HDL CHOLESTEROL 34 mg/dL (40-60); MAGNESIUM 1.9 mg/dL (1.7-2.9); SODIUM 142 mmol/L (136-145); TOTAL PROTEIN 7.4 g/dL (6.4-8.2); TRIGLYCERIDES 75 mg/dL (0-150); eGFR NON BLACK RACES > 60 (>60)
[2021-04-23] MEDS ORDERED: ZESTRIL TAB 20 MG ONE ×2 (08:25→10:31)
[2021-04-23] MEDS ORDERED: ZESTRIL TAB 20 MG PO SCH (09:00)
[2021-04-23] MEDS ORDERED: ZESTRIL TAB 20 MG PO ONE (10:10)
[2021-04-23] MEDS: NORVASC TAB 10 MG PO SCH (10:34)
[2021-04-23] MEDS: VANCOMYCIN IV *PREMIX 1.25 G/250 ML BAG 1.25 G/250 ML PIGGYBACK IV SCH ×2 (10:34→20:50)
[2021-04-23] MEDS ORDERED: PHARMACY CONSULT - VANCOMYCIN XX SCH (11:00)
[2021-04-23] MEDS: K-DUR TAB 20 MEQ PO SCH (13:24)
[2021-04-23] MEDS: MAGNESIUM SULFATE 1 GRAM/100 mL PREMIX 1 G/100 ML BAG IV PRN ×2 (17:20→18:41)
[2021-04-23] MEDS: ROCEPHIN 1 GRAM IV PREMIX 1 G/50 ML IV.SOLN. IV SCH (22:16)
[2021-04-24] MEDS: NS 1,000 ML IV 1,000 ML IV SCH (02:47)
[2021-04-24] MEDS ORDERED: ZESTRIL TAB 20 MG ONE (08:38)
[2021-04-24] MEDS: ZESTRIL TAB 20 MG PO SCH (09:08)
[2021-04-24] MEDS: VANCOMYCIN IV *PREMIX 1.25 G/250 ML BAG 1.25 G/250 ML PIGGYBACK IV SCH (09:08)
[2021-04-24] MEDS: NORVASC TAB 10 MG PO SCH (09:08)
[2021-04-24] MEDS: K-DUR TAB 20 MEQ PO SCH (09:08)
[2021-04-24 10:20] LABS: LYMPHOCYTES # (AUTO) 0.8 X10^3/uL (1.3-2.9); MEAN PLATELET VOLUME 9.2 fL (7.4-11.0); MONOCYTES # (AUTO) 0.2 x10^3/uL (0.3-0.8)
[2021-04-24 10:23] LABS: ALANINE AMINOTRANSFERASE 23 Units/L (12-78); ALBUMIN 2.7 g/dL (3.4-5.0); ALKALINE PHOSPHATASE 41 Units/L (46-116); ASPARTATE AMINO TRANSFERASE 31 Units/L (15-37); BLOOD UREA NITROGEN 11 mg/dL (7-18); CALCIUM 7.8 mg/dL (8.5-10.1); CARBON DIOXIDE 23.5 mmol/L (21-32); CHLORIDE 108 mmol/L (98-107); COR CA(FOR HYPOALB) 8.8 mg/dL (8.5-10.1); CREATININE 0.35 mg/dL (0.70-1.30); SODIUM 140 mmol/L (136-145); TOTAL PROTEIN 7.2 g/dL (6.4-8.2); eGFR NON BLACK RACES > 60 (>60)
[2021-04-24 10:42] LABS: MEAN CORPUSCULAR HGB CONC 34.9 g/dL (33.0-35.0)
[2021-04-24 10:46] LABS: BASOPHILS % (AUTO) 1.9 % (0.2-1.0); EOSINOPHILS # (AUTO) 0.2 x10^3/uL (0.0-0.2); EOSINOPHILS % (AUTO) 10.5 % (0.9-2.9); HEMATOCRIT 35.9 % (42.0-54.0); HEMOGLOBIN 12.5 g/dL (13.5-18.0); LYMPHOCYTES % (AUTO) 40.4 % (21.0-51.0); MEAN CORPUSCULAR HEMOGLOBIN 31.3 pg (27.0-34.0); MEAN CORPUSCULAR VOLUME 89.7 fL (80.0-100.0); NEUTROPHILS # (AUTO) 0.7 x10^3/uL (2.2-4.8); NEUTROPHILS % (AUTO) 36.2 % (42.0-75.0); RED CELL DISTRIBUTION WIDTH 14.2 % (11.6-16.5)
[2021-04-24 11:18] LABS: PLATELET MORPHOLOGY COMMENT NORMAL (NORMAL)
--- NOTE | 2021-04-24 13:58 | PCM.PROG ---
Progress Note Progress Note for Day of Date of Exam: 04/24/21 Subjective Subjective: Patient seen at bedside, no events overnight. Patient states he has been doing well. He feels his strength is slightly better. He did ambulate to the bathroom. He has been working with PT. Patient's BP has been better controlled. Labs pending Urine Cx: Staph aureus Plan: Follow morning labs. Continue IV Rocephin and Vancomycin. Continue lisinopril and norvasc. HIV results pending. PT/OT as tolerated. Monitor AM labs/imaging. Past Medical Family Social History Past Med/Fam/Surg Hx: No changes since H&P Allergies: Allergies Sulfa (Sulfonamide Antibiotics) [SULFA] Allergy (Verified 01/21/21 11:50) Review of Systems ROS: No change since H&P Vital Signs and I&O's Vital Signs: Temperature 97.1 F Pulse Rate [Right Radial] 107 Pulse Rate [Left Brachial] 58 Pulse Rate 78 Respiratory Rate 20 Blood Pressure [Right Arm] 142/97 Blood Pressure [Left Arm] 148/92 Blood Pressure 147/94 O2 Sat by Pulse Oximetry 99 Intake and Output: Intake & Output 04/21/21 04/22/21 04/23/21 04/24/21 23:59 23:59 23:59 23:59 Intake Total 3276 / 3276 1249 / 1249 Output Total 1450 / 1450 Balance 3276 / 3276 -201 / -201 Physical Exam Oriented: Normal Eyes: Normal Ear: Normal Nose: Normal Throat: Normal Respiratory: Generalized and Diminished Cardiovascular: Normal Auscultation: Bowel Sounds: Normal Tenderness: Normal Skin: Decreased Turgur Musculoskeletal: Leg, Back:Thoracic and Back:Lumbar Psychiatric: Normal Mood Description: Calm Affect: Normal Speech Pattern: Clear and Appropriate Laboratory and Diagnostics Result Diagrams: 04/24/21 05:30 04/24/21 05:30 Labs: 04/22/21 21:20 Urine,Clean Catch Urine Culture - Final Staphylococcus Aureus 04/22/21 18:43 Blood Blood Culture - Preliminary 04/22/21 18:35 Blood Blood Culture - Preliminary Laboratory WBC 2.0 X10^3/uL (3.6-10.0) L 04/24/21 05:30 RBC 4.00 X10^6/uL (4.7-6.0) L 04/24/21 05:30 Hgb 12.5 g/dL (13.5-18.0) L 04/24/21 05:30 Hct 35.9 % (42.0-54.0) L 04/24/21 05:30 MCV 89.7 fL (80.0-100.0) 04/24/21 05:30 MCH 31.3 pg (27.0-34.0) 04/24/21 05:30 MCHC 34.9 g/dL (33.0-35.0) 04/24/21 05:30 RDW 14.2 % (11.6-16.5) 04/24/21 05:30 Plt Count 114 X10^3/uL (150.0-450.0) L 04/24/21 05:30 Plt Count Comment Adequate (ADEQUATE) 04/24/21 05:30 MPV 9.2 fL (7.4-11.0) 04/24/21 05:30 Neut % (Auto) 36.2 % (42.0-75.0) L 04/24/21 05:30 Lymph % (Auto) 40.4 % (21.0-51.0) 04/24/21 05:30 [place] % (Auto) 11.0 % (0.0-13.0) 04/24/21 05:30 Eos % (Auto) 10.5 % (0.9-2.9) H 04/24/21 05:30 Baso % (Auto) 1.9 % (0.2-1.0) H 04/24/21 05:30 Neut # (Auto) 0.7 x10^3/uL (2.2-4.8) L 04/24/21 05:30 Lymph # (Auto) 0.8 X10^3/uL (1.3-2.9) L 04/24/21 05:30 [place] # (Auto) 0.2 x10^3/uL (0.3-0.8) L 04/24/21 05:30 Eos # (Auto) 0.2 x10^3/uL (0.0-0.2) 04/24/21 05:30 Baso # (Auto) 0.0 X10^3/uL (0.0-0.1) 04/24/21 05:30 Absolute Nucleated RBC 1.0 /100WBC 04/24/21 05:30 Total Counted 100 04/24/21 05:30 Neutrophils % (Manual) 51 % (39-76) 04/24/21 05:30 Lymphocytes % (Manual) 27 % (13-43) 04/24/21 05:30 Monocytes % (Manual) 9 % (4-9) 04/24/21 05:30 Eosinophils % (Manual) 13 % (0-6) H 04/24/21 05:30 Plt Morphology Comment Normal (NORMAL) 04/24/21 05:30 RBC Morphology Normal (NORMAL) 04/24/21 05:30 Sodium 140 mmol/L (136-145) 04/24/21 05:30 Corrected Sodium TNP 04/24/21 05:30 Potassium 3.4 mmol/L (3.5-5.1) L 04/24/21 05:30 Chloride 108 mmol/L (98-107) H 04/24/21 05:30 Carbon Dioxide 23.5 mmol/L (21-32) 04/24/21 05:30 BUN 11 mg/dL (7-18) 04/24/21 05:30 Creatinine 0.35 mg/dL (0.70-1.30) L 04/24/21 05:30 Est GFR (MDRD) Af Amer > 60 (>60) 04/24/21 05:30 Est GFR (MDRD) Non-Af > 60 (>60) 04/24/21 05:30 Glucose 84 mg/dL (65-99) 04/24/21 05:30 Lactic Acid 1.4 mmol/L (0.4-2.0) 04/22/21 18:35 Calcium 7.8 mg/dL (8.5-10.1) L 04/24/21 05:30 Corrected Calcium 8.8 mg/dL (8.5-10.1) 04/24/21 05:30 Magnesium 2.0 mg/dL (1.7-2.9) 04/24/21 05:30 Total Bilirubin 0.20 mg/dL (0.2-1.0) 04/24/21 05:30 AST 31 Units/L (15-37) 04/24/21 05:30 ALT 23 Units/L (12-78) 04/24/21 05:30 Alkaline Phosphatase 41 Units/L (46-116) L 04/24/21 05:30 Creatine Kinase 948 Units/L (39-308) H 04/22/21 18:35 CK-MB (CK-2) 8.7 ng/mL (0-4.0) H* 04/22/21 18:35 CK/CKMB % Calc 0.9 % (<4) 04/22/21 18:35 Troponin I High Sens 14.4 ng/L (4.0-60.0) 04/22/21 18:35 Total Protein 7.2 g/dL (6.4-8.2) 04/24/21 05:30 Albumin 2.7 g/dL (3.4-5.0) L 04/24/21 05:30 Globulin 4.5 g/dL (2.5-4.5) 04/24/21 05:30 Albumin/Globulin Ratio 0.6 Ratio (1.1-2.1) L 04/24/21 05:30 Triglycerides 75 mg/dL (0-150) 04/23/21 05:53 Cholesterol 121 mg/dL (0-200) 04/23/21 05:53 LDL Cholesterol, Calc 72 mg/dL (0-100) 04/23/21 05:53 HDL Cholesterol 34 mg/dL (40-60) L 04/23/21 05:53 Cholesterol/HDL Ratio 3.6 (0.0-5.0) 04/23/21 05:53 Specimen Type Clean catch urine 04/22/21 21:20 Urine Color Yellow (YELLOW) 04/22/21 21:20 Urine Appearance Cloudy (CLEAR) 04/22/21 21:20 Urine pH 5.0 (5.0 - 8.0) 04/22/21 21:20 Ur Specific [place] 1.030 (1.000-1.030) 04/22/21 21:20 Urine Protein 3+ (NEGATIVE) 04/22/21 21:20 Urine Glucose (UA) Negative (NEGATIVE) 04/22/21 21:20 Urine Ketones 3+ (NEGATIVE) 04/22/21 21:20 Urine Occult Blood 5+ (NEGATIVE) 04/22/21 21:20 Urine Nitrite Positive (NEGATIVE) 04/22/21 21:20 Urine Bilirubin Negative (NEGATIVE) 04/22/21 21:20 Urine Urobilinogen Normal (NORMAL) 04/22/21 21:20 Ur Leukocyte Esterase 3+ (NEGATIVE) 04/22/21 21:20 Urine RBC 3-5 /HPF (0-3) A 04/22/21 21:20 Urine WBC Tntc /HPF (0-5) A 04/22/21 21:20 Ur Squamous Epith Cells Negative /HPF (NEGATIVE) 04/22/21 21:20 Urine Bacteria 1+ /HPF (NEGATIVE) 04/22/21 21:20 Ur Culture Indicated? Yes/culture set up 04/22/21 21:20 SARS CoV-2 RNA Rapid MARCIN Negative (NEGATIVE) 04/22/21 23:26 Plan (1) UTI (urinary tract infection): Status: Acute Qualifiers: Hematuria presence: with hematuria Urinary tract infection type: site unspecified Qualified Code(s): N39.0 - Urinary tract infection, site not specified; R31.9 - Hematuria, unspecified (2) Sepsis secondary to UTI: Status: Acute (3) Benign prostatic hyperplasia: Status: Acute Qualifiers: Lower urinary tract symptom detail: unspecified Lower urinary tract symptom presence: symptoms present Qualified Code(s): N40.1 - Benign prostatic hyperplasia with lower urinary tract symptoms (4) Generalized weakness: Status: Acute (5) Anemia: Status: Acute Qualifiers: Anemia type: unspecified type Qualified Code(s): D64.9 - Anemia, unspecified (6) Thrombocytopenia: Status: Acute (7) HTN (hypertension): Status: Acute Qualifiers: Hypertension type: primary hypertension Qualified Code(s): I10 - Essential (primary) hypertension
[2021-04-24] MEDS ORDERED: PHARMACY COMMENT IV NR (20:30)
[2021-04-24 20:59] LABS: CREATININE 0.51 mg/dL (0.70-1.30); VANCOMYCIN,TROUGH 9.6 ug/mL (15-20)
[2021-04-24] MEDS: ROCEPHIN 1 GRAM IV PREMIX 1 G/50 ML IV.SOLN. IV SCH (22:41)
[2021-04-24] MEDS: VANCOMYCIN IV *PREMIX 1.5 G/300 ML BAG 1.5 G/300 ML PIGGYBACK IV SCH (23:31)
[2021-04-25] MEDS: NS 1,000 ML IV 1,000 ML IV SCH ×2 (04:39→18:00)
[2021-04-25 06:24] LABS: BASOPHILS % (AUTO) 0.3 % (0.2-1.0); EOSINOPHILS # (AUTO) 0.2 x10^3/uL (0.0-0.2); EOSINOPHILS % (AUTO) 9.8 % (0.9-2.9); HEMATOCRIT 37.2 % (42.0-54.0); HEMOGLOBIN 13.2 g/dL (13.5-18.0); MEAN CORPUSCULAR HEMOGLOBIN 31.6 pg (27.0-34.0); MEAN CORPUSCULAR HGB CONC 35.5 g/dL (33.0-35.0); MEAN PLATELET VOLUME 8.4 fL (7.4-11.0); MONOCYTES # (AUTO) 0.3 x10^3/uL (0.3-0.8); MONOCYTES % (AUTO) 12.5 % (0.0-13.0); NEUTROPHILS # (AUTO) 0.9 x10^3/uL (2.2-4.8); NEUTROPHILS % (AUTO) 37.4 % (42.0-75.0); RED BLOOD COUNT 4.18 X10^6/uL (4.7-6.0); RED CELL DISTRIBUTION WIDTH 14.4 % (11.6-16.5); WHITE BLOOD COUNT 2.4 X10^3/uL (3.6-10.0)
[2021-04-25 07:10] LABS: PLATELET MORPHOLOGY COMMENT NORMAL (NORMAL)
[2021-04-25 07:15] LABS: BLOOD UREA NITROGEN 6 mg/dL (7-18); CALCIUM 7.8 mg/dL (8.5-10.1); CARBON DIOXIDE 26.4 mmol/L (21-32); CHLORIDE 110 mmol/L (98-107); CREATININE 0.45 mg/dL (0.70-1.30); SODIUM 143 mmol/L (136-145); eGFR NON BLACK RACES > 60 (>60)
[2021-04-25] MEDS ORDERED: ZESTRIL TAB 20 MG ONE (08:27)
[2021-04-25] MEDS: NORVASC TAB 10 MG PO SCH (08:45)
[2021-04-25] MEDS: ZESTRIL TAB 20 MG PO SCH (08:45)
[2021-04-25] MEDS: K-DUR TAB 20 MEQ PO SCH (08:45)
[2021-04-25] MEDS: VANCOMYCIN IV *PREMIX 1.5 G/300 ML BAG 1.5 G/300 ML PIGGYBACK IV SCH (08:46)
--- NOTE | 2021-04-25 12:01 | PCM.PROG ---
Progress Note Progress Note for Day of Date of Exam: 04/25/21 Subjective Subjective: Patient seen at bedside, no events overnight. Patient states he has been doing well. He feels his strength is slightly better. He did ambulate to the bathroom. He has been working with PT. He feels like he can go home soon. He does live by himself. Labs pending Urine Cx: Staph aureus Plan: Continue IV Rocephin,Will DC Vancomycin. Continue lisinopril and norvasc. HIV results pending. PT/OT as tolerated. Monitor AM labs/imaging. Past Medical Family Social History Past Med/Fam/Surg Hx: No changes since H&P Allergies: Allergies Sulfa (Sulfonamide Antibiotics) [SULFA] Allergy (Verified 01/21/21 11:50) Review of Systems ROS: No change since H&P Vital Signs and I&O's Vital Signs: Temperature 97.4 F Pulse Rate [Right Radial] 73 Pulse Rate [Left Brachial] 58 Pulse Rate 78 Respiratory Rate 18 Blood Pressure [Right Arm] 115/76 Blood Pressure [Left Arm] 122/70 Blood Pressure 147/94 O2 Sat by Pulse Oximetry 97 Intake and Output: Intake & Output 04/22/21 04/23/21 04/24/21 04/25/21 23:59 23:59 23:59 23:59 Intake Total 3276 / 3276 4294 / 4294 1362 / 1362 Output Total 3800 / 3800 3225 / 3225 Balance 3276 / 3276 494 / 494 -1863 / -1863 Physical Exam Oriented: Normal Eyes: Normal Ear: Normal Nose: Normal Throat: Normal Respiratory: Generalized and Diminished Cardiovascular: Normal Auscultation: Bowel Sounds: Normal Tenderness: Normal Skin: Decreased Turgur Musculoskeletal: Leg, Back:Thoracic and Back:Lumbar Psychiatric: Normal Mood Description: Calm Affect: Normal Speech Pattern: Clear and Appropriate Laboratory and Diagnostics Result Diagrams: 04/25/21 05:58 04/25/21 05:58 Labs: 04/22/21 21:20 Urine,Clean Catch Urine Culture - Final Staphylococcus Aureus 04/22/21 18:43 Blood Blood Culture - Preliminary 04/22/21 18:35 Blood Blood Culture - Preliminary Laboratory WBC 2.4 X10^3/uL (3.6-10.0) L 04/25/21 05:58 RBC 4.18 X10^6/uL (4.7-6.0) L 04/25/21 05:58 Hgb 13.2 g/dL (13.5-18.0) L 04/25/21 05:58 Hct 37.2 % (42.0-54.0) L 04/25/21 05:58 MCV 89.0 fL (80.0-100.0) 04/25/21 05:58 MCH 31.6 pg (27.0-34.0) 04/25/21 05:58 MCHC 35.5 g/dL (33.0-35.0) H 04/25/21 05:58 RDW 14.4 % (11.6-16.5) 04/25/21 05:58 Plt Count 120 X10^3/uL (150.0-450.0) L 04/25/21 05:58 Plt Count Comment Decreased (ADEQUATE) 04/25/21 05:58 MPV 8.4 fL (7.4-11.0) 04/25/21 05:58 Neut % (Auto) 37.4 % (42.0-75.0) L 04/25/21 05:58 Lymph % (Auto) 40.0 % (21.0-51.0) 04/25/21 05:58 [place] % (Auto) 12.5 % (0.0-13.0) 04/25/21 05:58 Eos % (Auto) 9.8 % (0.9-2.9) H 04/25/21 05:58 Baso % (Auto) 0.3 % (0.2-1.0) 04/25/21 05:58 Neut # (Auto) 0.9 x10^3/uL (2.2-4.8) L 04/25/21 05:58 Lymph # (Auto) 1.0 X10^3/uL (1.3-2.9) L 04/25/21 05:58 [place] # (Auto) 0.3 x10^3/uL (0.3-0.8) 04/25/21 05:58 Eos # (Auto) 0.2 x10^3/uL (0.0-0.2) 04/25/21 05:58 Baso # (Auto) 0.0 X10^3/uL (0.0-0.1) 04/25/21 05:58 Absolute Nucleated RBC 0.1 /100WBC 04/25/21 05:58 Total Counted 50 04/25/21 05:58 Neutrophils % (Manual) 32 % (39-76) L 04/25/21 05:58 Lymphocytes % (Manual) 48 % (13-43) H 04/25/21 05:58 Monocytes % (Manual) 12 % (4-9) H 04/25/21 05:58 Eosinophils % (Manual) 8 % (0-6) H 04/25/21 05:58 Plt Morphology Comment Normal (NORMAL) 04/25/21 05:58 RBC Morphology Normal (NORMAL) 04/25/21 05:58 Sodium 143 mmol/L (136-145) 04/25/21 05:58 Corrected Sodium TNP 04/25/21 05:58 Potassium 3.6 mmol/L (3.5-5.1) 04/25/21 05:58 Chloride 110 mmol/L (98-107) H 04/25/21 05:58 Carbon Dioxide 26.4 mmol/L (21-32) 04/25/21 05:58 BUN 6 mg/dL (7-18) L 04/25/21 05:58 Creatinine 0.45 mg/dL (0.70-1.30) L 04/25/21 05:58 Est GFR (MDRD) Af Amer > 60 (>60) 04/25/21 05:58 Est GFR (MDRD) Non-Af > 60 (>60) 04/25/21 05:58 Glucose 79 mg/dL (65-99) 04/25/21 05:58 Lactic Acid 1.4 mmol/L (0.4-2.0) 04/22/21 18:35 Calcium 7.8 mg/dL (8.5-10.1) L 04/25/21 05:58 Corrected Calcium 8.8 mg/dL (8.5-10.1) 04/24/21 05:30 Magnesium 2.0 mg/dL (1.7-2.9) 04/24/21 05:30 Total Bilirubin 0.20 mg/dL (0.2-1.0) 04/24/21 05:30 AST 31 Units/L (15-37) 04/24/21 05:30 ALT 23 Units/L (12-78) 04/24/21 05:30 Alkaline Phosphatase 41 Units/L (46-116) L 04/24/21 05:30 Creatine Kinase 948 Units/L (39-308) H 04/22/21 18:35 CK-MB (CK-2) 8.7 ng/mL (0-4.0) H* 04/22/21 18:35 CK/CKMB % Calc 0.9 % (<4) 04/22/21 18:35 Troponin I High Sens 14.4 ng/L (4.0-60.0) 04/22/21 18:35 Total Protein 7.2 g/dL (6.4-8.2) 04/24/21 05:30 Albumin 2.7 g/dL (3.4-5.0) L 04/24/21 05:30 Globulin 4.5 g/dL (2.5-4.5) 04/24/21 05:30 Albumin/Globulin Ratio 0.6 Ratio (1.1-2.1) L 04/24/21 05:30 Triglycerides 75 mg/dL (0-150) 04/23/21 05:53 Cholesterol 121 mg/dL (0-200) 04/23/21 05:53 LDL Cholesterol, Calc 72 mg/dL (0-100) 04/23/21 05:53 HDL Cholesterol 34 mg/dL (40-60) L 04/23/21 05:53 Cholesterol/HDL Ratio 3.6 (0.0-5.0) 04/23/21 05:53 Specimen Type Clean catch urine 04/22/21 21:20 Urine Color Yellow (YELLOW) 04/22/21 21:20 Urine Appearance Cloudy (CLEAR) 04/22/21 21:20 Urine pH 5.0 (5.0 - 8.0) 04/22/21 21:20 Ur Specific [place] 1.030 (1.000-1.030) 04/22/21 21:20 Urine Protein 3+ (NEGATIVE) 04/22/21 21:20 Urine Glucose (UA) Negative (NEGATIVE) 04/22/21 21:20 Urine Ketones 3+ (NEGATIVE) 04/22/21 21:20 Urine Occult Blood 5+ (NEGATIVE) 04/22/21 21:20 Urine Nitrite Positive (NEGATIVE) 04/22/21 21:20 Urine Bilirubin Negative (NEGATIVE) 04/22/21 21:20 Urine Urobilinogen Normal (NORMAL) 04/22/21 21:20 Ur Leukocyte Esterase 3+ (NEGATIVE) 04/22/21 21:20 Urine RBC 3-5 /HPF (0-3) A 04/22/21 21:20 Urine WBC Tntc /HPF (0-5) A 04/22/21 21:20 Ur Squamous Epith Cells Negative /HPF (NEGATIVE) 04/22/21 21:20 Urine Bacteria 1+ /HPF (NEGATIVE) 04/22/21 21:20 Ur Culture Indicated? Yes/culture set up 04/22/21 21:20 Vancomycin Trough 9.6 ug/mL (15-20) L 04/24/21 20:30 SARS CoV-2 RNA Rapid MARCIN Negative (NEGATIVE) 04/22/21 23:26 Plan (1) UTI (urinary tract infection): Status: Acute Qualifiers: Hematuria presence: with hematuria Urinary tract infection type: site unspecified Qualified Code(s): N39.0 - Urinary tract infection, site not specified; R31.9 - Hematuria, unspecified (2) Sepsis secondary to UTI: Status: Acute (3) Benign prostatic hyperplasia: Status: Acute Qualifiers: Lower urinary tract symptom detail: unspecified Lower urinary tract symptom presence: symptoms present Qualified Code(s): N40.1 - Benign prostatic hyperplasia with lower urinary tract symptoms (4) Generalized weakness: Status: Acute (5) Anemia: Status: Acute Qualifiers: Anemia type: unspecified type Qualified Code(s): D64.9 - Anemia, unspecified (6) Thrombocytopenia: Status: Acute (7) HTN (hypertension): Status: Acute Qualifiers: Hypertension type: primary hypertension Qualified Code(s): I10 - Essential (primary) hypertension
[2021-04-25] MEDS: ROCEPHIN 1 GRAM IV PREMIX 1 G/50 ML IV.SOLN. IV SCH (21:44)
[2021-04-26] MEDS: NS 1,000 ML IV 1,000 ML IV SCH ×2 (03:58→06:08)
[2021-04-26 06:55] LABS: BASOPHILS % (AUTO) 0.3 % (0.2-1.0); EOSINOPHILS # (AUTO) 0.3 x10^3/uL (0.0-0.2); EOSINOPHILS % (AUTO) 10.8 % (0.9-2.9); HEMATOCRIT 35.3 % (42.0-54.0); HEMOGLOBIN 12.3 g/dL (13.5-18.0); LYMPHOCYTES # (AUTO) 1.1 X10^3/uL (1.3-2.9); LYMPHOCYTES % (AUTO) 46.6 % (21.0-51.0); MEAN CORPUSCULAR HGB CONC 34.8 g/dL (33.0-35.0); MEAN CORPUSCULAR VOLUME 89.1 fL (80.0-100.0); MEAN PLATELET VOLUME 8.9 fL (7.4-11.0); MONOCYTES # (AUTO) 0.3 x10^3/uL (0.3-0.8); MONOCYTES % (AUTO) 11.8 % (0.0-13.0); NEUTROPHILS # (AUTO) 0.7 x10^3/uL (2.2-4.8); NEUTROPHILS % (AUTO) 30.5 % (42.0-75.0); RED BLOOD COUNT 3.96 X10^6/uL (4.7-6.0); RED CELL DISTRIBUTION WIDTH 14.6 % (11.6-16.5); WHITE BLOOD COUNT 2.4 X10^3/uL (3.6-10.0)
[2021-04-26 07:07] LABS: BLOOD UREA NITROGEN 6 mg/dL (7-18); CHLORIDE 109 mmol/L (98-107); CREATININE 0.43 mg/dL (0.70-1.30); SODIUM 142 mmol/L (136-145); eGFR NON BLACK RACES > 60 (>60)
[2021-04-26 07:33] LABS: PLATELET MORPHOLOGY COMMENT NORMAL (NORMAL)
[2021-04-26] MEDS ORDERED: MAGNESIUM SULFATE 1 GRAM/100 mL PREMIX 1 G/100 ML BAG IV PRN (08:10)
[2021-04-26] MEDS ORDERED: KLOR-CON PO PRN (08:10)
[2021-04-26] MEDS ORDERED: POTASSIUM CHLORIDE LIQ 20 MEQ UDC PO PRN (08:10)
[2021-04-26] MEDS ORDERED: POTASSIUM CHL 40 MEQ/NS 0.45% 500 ML IV PRN (08:10)
[2021-04-26] MEDS ORDERED: MICRO K EXTEN CAP 10 MEQ PO PRN (08:10)
[2021-04-26] MEDS ORDERED: K-DUR TAB 20 MEQ PO PRN (08:10)
[2021-04-26] MEDS ORDERED: K-RIDER 10 MEQ/NS 100 ML 10 MEQ/100 ML BAG IV PRN (08:10)
[2021-04-26] MEDS ORDERED: POTASSIUM CHL 60 MEQ/NS 0.45% 500 ML IV PRN (08:10)
[2021-04-26] MEDS ORDERED: ZESTRIL TAB 20 MG ONE (08:49)
[2021-04-26] MEDS ORDERED: VIBRAMYCIN PO SCH (09:00)
[2021-04-26] MEDS ORDERED: RIFADIN PO SCH (09:00)
[2021-04-26] MEDS: K-DUR TAB 20 MEQ PO SCH (09:13)
[2021-04-26] MEDS: NORVASC TAB 10 MG PO SCH (09:13)
[2021-04-26] MEDS: ZESTRIL TAB 20 MG PO SCH (09:13)
[2021-04-26] MEDS: MAGNESIUM SULFATE 1 GRAM/100 mL PREMIX 1 G/100 ML BAG IV PRN ×2 (09:14→10:19)
[2021-04-26 11:09] VITALS: BP 134/88
[2021-04-29 06:23] LABS: HIV1 WESTERN BLOT Positive (Negative)
== END 2021-04-26 14:02 | disposition home or self-care (01) ==
LOC: ER 18:05 → MED/SURG 18:05
PROVIDERS: ADMIT Family Medicine; ATTEND Obstetrics & Gynecology Obstetrics
DX: R53.1 Weakness; R41.82 Altered mental status, unspecified; R31.9 Hematuria, unspecified; N40.1 Benign prostatic hyperplasia with lower urinary tract symptoms; Z20.822 Contact with and (suspected) exposure to COVID-19; N39.0 Urinary tract infection, site not specified; I10 Essential (primary) hypertension; D69.6 Thrombocytopenia, unspecified; M54.89 Other dorsalgia; R06.02 Shortness of breath; B95.61 Methicillin susceptible Staphylococcus aureus infection as the cause of diseases classified elsewhere; A41.89 Other specified sepsis; E87.6 Hypokalemia; K40.90 Unilateral inguinal hernia, without obstruction or gangrene, not specified as recurrent; R29.6 Repeated falls; N41.9 Inflammatory disease of prostate, unspecified; D64.89 Other specified anemias